=== PATIENT | male | born 1970 | race African-American/Black ===

== ENCOUNTER 2023-08-29 07:43 | Outpatient (RCR) | payer OTHER, SELFPAY ==
[2023-08-04] VITALS (7 sets, daily range): BP systolic 98–112; BP diastolic 52–68
--- NOTE | 2023-08-04 15:13 | SURV.HPR ---
Assessment / Plan
- -
Assessment:
Metastatic prostate cancer undergoing treatment with lupron, aberaterone, and keytruda.
Plan:
Transfuse 2 units PRBCs as planned.
Follow up with Dr. Hanley as scheduled.
Continue keytruda at 200mg q3.
Continue tramadol for joint pain as needed- has RX.
Emphasized healthy lifestyle and encouraged small bouts of exercise (ie walking, riding stationary bike, etc) to attempt to improve side effects including sleep, joint pain, fatigue.
Patient was given the opportunity to ask questions and responses provided. No questions asked.
Encouraged patient to call the office to any additional questions or concerns.
Medical History
- Chief Complaint
Date of Service: 08/04/23 (prior to blood transfusion)
- Interval History
Patient under the care of Dr. Hanley for metastatic prostate cancer with a BRCA mutation. Was restarted on keytruda 05/2023 per patient and has been receiving every 3 weeks along with lupron q6 months. He recently had colonoscopy and endoscopy and
colon polyps discovered but not removed due to low platelets. He has been requiring transfusion support. Recent CBC 6.9 on 08/01 and here today for 2 units of blood. Does report SOB on exertion, 'wooziness' at times, fatigue. He is sleeping ok
and has some joint paint to hip flexors as well as shoulders which he believes is related to keytruda but improved with lower dosage. Otherwise he has no other complaints. He comes to today's appt unaccompanied.
- Past Medical History
Past Medical History: Cancer (mets prostate), Other (renal failure)
Past Surgical History: None
- Social History
Tobacco: Non-smoker
Alcohol: None
Drug: None
Personal:
Living: With Family
Employment: Employed
- Family History
Family History: Not pertinent
- Allergies & Home Medications
Allergies
Allergy/AdvReac Type Severity Reaction Status Date / Time
No Known Allergies Allergy Verified 08/04/23 10:58
Home Medications
cyanocobalamin (vitamin B-12) 1,000 mcg tablet 1,000 mcg PO DAILY Supplement 05/30/16
abiraterone 250 mg tablet (Zytiga) 1,000 mg PO DAILY Prostate Cancer 01/17/23
ascorbic acid (vitamin C) 1,000 mg tablet (Vitamin C) 500 mg PO DAILY Supplement 01/17/23
calcium 150 mg tablet 1,200 mg PO DAILY Supplement 01/17/23
cholecalciferol (vitamin D3) 100 mcg (4,000 unit) capsule 125 mcg PO DAILY Supplement 01/17/23
acetaminophen 325 mg tablet 1,000 mg PO TID PRN Pain 14 days #130 tabs 01/18/23
denosumab 120 mg/1.7 mL (70 mg/mL) subcutaneous solution (Xgeva) 120 mg SC Q4W 02/03/23
leuprolide acetate (6 month) 45 mg intramuscular syringe kit (Lupron Depot) 45 mg IM .[id number] 02/03/23
dexamethasone 4 mg tablet 1 mg PO DAILY 06/07/23
tramadol 50 mg tablet 50 mg PO Q6H PRN pain 07/21/23
lupron 45mg q6 months
Review of Systems
- -
History Source: Patient
A 12 point review of systems was negative except as noted: Yes
All other systems: Reviewed and negative
General: Reports: Fatigue, Weakness
Skin: Reports: Itching (after keytruda once but has not recurred)
Cardiac: Reports: Dyspnea on Exertion
Respiratory: Reports: Shortness of Breath
GI: Reports: Appetite Good
MusculoSkeletal: Reports: Joint Pain
Patient reports the following physical concerns:
Physical Exam
- -
General: Well Developed, Well Nourished, No Apparent Distress, Male
HEENT: Normocephalic, PERRLA
Respiratory: Clear to Auscultation, Non Labored Respirations, Breath Sounds Clear Throughout
Cardiac: Regular Rhythm, Positive S1/S2
GI: Soft, Non Tender, Non Distended, Normal Bowel Sounds
Genito-urinary: No Costovertebral Tenderness
Musculoskeletal: No Edema, Full ROM
Skin: Warm, Dry
Neuro: AAOx3, Nonfocal/grossly Intact
Hematologic/Lymphatic: No Lymphadenopathy
Psych: Calm, Interactive & Cooperative
[2023-08-29] VITALS (8 sets, daily range): BP systolic 95–110; BP diastolic 57–75
== END 2023-08-30 10:51 | disposition home or self-care (01) ==
LOC: OID 07:43
PROVIDERS: ATTENDING PHYSICIAN Internal Medicine Hematology & Oncology; FAMILY PHYSICIAN Family Medicine
DX: C61 Malignant neoplasm of prostate (principal); C77.2 Secondary and unspecified malignant neoplasm of intra-abdominal lymph nodes; C79.51 Secondary malignant neoplasm of bone
CPT/HCPCS: 36415; 36430; 86850; 86900; 86901; 86920; P9016

== ENCOUNTER 2023-09-28 07:38 | Outpatient (RCR) | payer OTHER, SELFPAY ==
[2023-09-05 09:39] LABS: % Eosinophils 0.6 % (0-6); % Immature Granulocytes 2.3 % (0-0.5); % Lymphocytes 36.2 % (20.5-51.1); % Monocytes 8.2 % (1.7-9.3); % Neutrophils 52.7 % (42.2-75.2); Absolute Immature Granulocytes 0.1 10^3/uL (0-0.05); Absolute Lymphocytes 1.3 10^3/uL (1.2-3.4); Absolute Monocytes 0.3 10^3/uL (0.1-0.6); Absolute Neutrophils 1.9 10^3/uL (1.4-6.5); Hematocrit 23.5 % (39.0-52.0); Hemoglobin 7.7 g/dL (13.0-18.0); Mean Corp Hgb Conc. 32.8 g/dL (33.0-37.0); Mean Corpuscular Hgb 31.2 pg (27.0-31.0); Mean Corpuscular Volume 95.1 fL (80.0-94.0); Red Blood Cell Count 2.47 10^6/uL (4.70-6.10); Red Cell Dist. Width 19.9 % (11.5-14.5); White Blood Cell Count 3.5 10^3/uL (4.8-10.8)
[2023-09-05 09:41] LABS: Platelet Count 20 10^3/uL (130-400)
[2023-09-05 10:21] LABS: Carbon Dioxide 23 mmol/L (22-30)
[2023-09-05 10:28] LABS: ALT (SGPT) 17 U/L (0-50); AST (SGOT) 100 U/L (17-59); Albumin 3.6 g/dl (3.5-5.0); Alkaline Phosphatase 162 U/L (38-126); Blood Urea Nitrogen 13 mg/dl (9-20); Calcium 7.9 mg/dl (8.4-10.2); Chloride 108 mmol/L (98-107); Glucose 110 mg/dl (70-99); Potassium 3.8 mmol/L (3.5-5.1); Sodium 137 mmol/L (135-145); Total Bilirubin 0.8 mg/dl (0.2-1.3); Total Protein 6.9 g/dl (6.3-8.2); eGFR > 60.00
[2023-09-14 08:14] VITALS: BP 91/45
[2023-09-14 08:34] VITALS: BP 101/44
--- NOTE | 2023-09-14 09:05 | SURV.HPR ---
Assessment / Plan
- -
Assessment:
Metastatic prostate cancer undergoing treatment with lupron, aberaterone, keytruda, xgeva..
Plan:
Transfuse 2 units PRBCs as planned today.
Follow up with Dr. Hanley as scheduled.
Consider nutrition consult if weight loss recurs or for any nutritional education.
Bleeding precautions reviewed with patient due to thrombocytopenia.
Continue keytruda at 200mg q3. Next dose 09/26/2023 with [facility] appt.
Continue tramadol for joint pain as needed- has RX.
Emphasized healthy lifestyle and encouraged small bouts of exercise (ie walking, riding stationary bike, etc) to attempt to improve side effects including sleep, joint pain, fatigue.
Patient was given the opportunity to ask questions and responses provided. No questions asked.
Encouraged patient to call the office to any additional questions or concerns.
Medical History
- Chief Complaint
Date of Service: 09/14/23 (prior to blood transfusion)
- Interval History
Patient under the care of Dr. Hanley for metastatic prostate cancer with a BRCA mutation. Was restarted on keytruda 05/2023 per patient and has been receiving every 3 weeks along with lupron q6 months last dose 09/05/2023 with xgeva. Of note he had a
recent colonoscopy and endoscopy and colon polyps discovered but not removed due to low platelets. He has been requiring transfusion support. Recent CBC hgb 6.4 on 09/10 platelets 20 and here today for 2 units of blood. Does report SOB on exertion
and fatigue. He is sleeping ok about 6 hours per night. Does report continued pain to shoulders and seems to worsen after Keytruda. Does take tramadol for pain relief. Due to follow up with Dr. Hanley 09/26/2023 and for treatment. He comes to
today's appt unaccompanied. Still continues to work.
- Past Medical History
Past Medical History: Cancer (prostate metastatic), Renal Failure (acute hydronephrosis)
Past Surgical History: None
- Social History
Tobacco: Non-smoker
Drug: None
Personal:
Living: With Family
Employment: Employed
- Family History
Family History: Not pertinent
- Allergies & Home Medications
Allergies
Allergy/AdvReac Type Severity Reaction Status Date / Time
No Known Allergies Allergy Verified 09/14/23 08:11
Home Medications
cyanocobalamin (vitamin B-12) 1,000 mcg tablet 1,000 mcg PO DAILY Supplement 05/30/16
abiraterone 250 mg tablet (Zytiga) 1,000 mg PO DAILY Prostate Cancer 01/17/23
ascorbic acid (vitamin C) 1,000 mg tablet (Vitamin C) 500 mg PO DAILY Supplement 01/17/23
calcium 150 mg tablet 1,200 mg PO DAILY Supplement 01/17/23
cholecalciferol (vitamin D3) 100 mcg (4,000 unit) capsule 125 mcg PO DAILY Supplement 01/17/23
acetaminophen 325 mg tablet 1,000 mg PO TID PRN Pain 14 days #130 tabs 01/18/23
denosumab 120 mg/1.7 mL (70 mg/mL) subcutaneous solution (Xgeva) 120 mg SC Q4W 02/03/23
leuprolide acetate (6 month) 45 mg intramuscular syringe kit (Lupron Depot) 45 mg IM .[id number] 02/03/23
dexamethasone 4 mg tablet 1 mg PO DAILY 06/07/23
tramadol 50 mg tablet 50 mg PO Q6H PRN pain 07/21/23
Review of Systems
- -
History Source: Patient
A 12 point review of systems was negative except as noted: Yes
All other systems: Reviewed and negative
General: Reports: Weight Stable, Fatigue, Weakness
HEENT: Denies: Headache, Nausea, Vomiting, Epistaxis
Cardiac: Reports: Dyspnea on Exertion
GI: Reports: Appetite Fair. Denies: Nausea, Vomiting, Diarrhea, Constipation, Blood in Stool
Vascular: Reports: Other (easy bruising)
MusculoSkeletal: Reports: Muscle Weakness, Joint Pain
Patient reports the following physical concerns:
Physical Exam
- -
General: No Apparent Distress, Male, Comfortable, Conversant
HEENT: Normocephalic
Respiratory: Clear to Auscultation
Cardiac: Regular Rhythm, Positive S1/S2
GI: Soft, Non Tender, Non Distended, Normal Bowel Sounds
Musculoskeletal: No Edema
Skin: Warm, Dry, Normal Turgor
Neuro: AAOx3, Nonfocal/grossly Intact
Hematologic/Lymphatic: No Lymphadenopathy
Psych: Calm, Intact Judgement/Insight, Interactive & Cooperative
[2023-09-14 10:05] VITALS: BP 95/44
[2023-09-14 10:10] VITALS: BP 95/44
[2023-09-14 10:26] VITALS: BP 107/48
[2023-09-14 12:29] VITALS: BP 106/53
[2023-09-28] VITALS (9 sets, daily range): BP systolic 103–120; BP diastolic 63–68
== END 2023-09-29 10:12 | disposition home or self-care (01) ==
LOC: OID 07:38
PROVIDERS: ATTENDING PHYSICIAN Internal Medicine Hematology & Oncology
DX: C79.51 Secondary malignant neoplasm of bone (principal); C61 Malignant neoplasm of prostate; C77.2 Secondary and unspecified malignant neoplasm of intra-abdominal lymph nodes
CPT/HCPCS: 36415; 36430; 80053; 85025; 86850; 86900; 86901; 86920; 96365; P9016; P9073

== ENCOUNTER → 2023-09-29 09:09 | Outpatient (REF) | payer OTHER, SELFPAY ==
[2023-09-29 09:41] VITALS: BP 109/72; BP_SYST 77
[2023-09-29 10:18] LABS: % Basophils 0.3 % (0-2); % Eosinophils 0.3 % (0-6); % Lymphocytes 38.9 % (20.5-51.1); % Monocytes 7.8 % (1.7-9.3); % Neutrophils 50.7 % (42.2-75.2); Absolute Immature Granulocytes 0.1 10^3/uL (0-0.05); Absolute Lymphocytes 1.2 10^3/uL (1.2-3.4); Absolute Monocytes 0.2 10^3/uL (0.1-0.6); Absolute Neutrophils 1.6 10^3/uL (1.4-6.5); Hematocrit 22.9 % (39.0-52.0); Hemoglobin 7.5 g/dL (13.0-18.0); Mean Corp Hgb Conc. 32.8 g/dL (33.0-37.0); Mean Corpuscular Hgb 29.5 pg (27.0-31.0); Mean Corpuscular Volume 90.2 fL (80.0-94.0); Nucleated Red Blood Cells % 0.7 % (-); Platelet Count 31 10^3/uL (130-400); Red Blood Cell Count 2.54 10^6/uL (4.70-6.10); Red Cell Dist. Width 18.3 % (11.5-14.5); White Blood Cell Count 3.1 10^3/uL (4.8-10.8)
[2023-09-29] MEDS: ATIVAN 0.5 MG IV (10:24)
[2023-09-29] MEDS: NSS (PRESERVATIVE FREE) 0.25 ML IV (10:25)
[2023-09-29 10:28] LABS: INR 1.16; PT 14.7 Sec (11.4-14.6)
[2023-09-29 11:46] VITALS: BP 112/68; BP_SYST 75
[2023-09-29 12:19] VITALS: BP 96/54
== END ==
LOC: RADI 09:09
PROVIDERS: Radiology Diagnostic Radiology; ATTENDING PHYSICIAN Nurse Practitioner Adult Health; FAMILY PHYSICIAN Family Medicine
DX: D64.9 Anemia, unspecified (principal); C61 Malignant neoplasm of prostate
CPT/HCPCS: 88305; 88311; 88312; 38222; 77012; 85025; 85610; 88313; 88341; 88342

== ENCOUNTER → 2023-10-26 09:02 | Outpatient (REF) | payer OTHER, SELFPAY ==
[2023-10-26 10:26] LABS: % Basophils 0.3 % (0-2); % Eosinophils 0.3 % (0-6); % Immature Granulocytes 1.4 % (0-0.5); % Lymphocytes 40.1 % (20.5-51.1); % Monocytes 8.7 % (1.7-9.3); % Neutrophils 49.2 % (42.2-75.2); Absolute Immature Granulocytes 0.1 10^3/uL (0-0.05); Absolute Lymphocytes 1.5 10^3/uL (1.2-3.4); Absolute Monocytes 0.3 10^3/uL (0.1-0.6); Absolute Neutrophils 1.8 10^3/uL (1.4-6.5); Hematocrit 25.2 % (39.0-52.0); Hemoglobin 8.1 g/dL (13.0-18.0); Mean Corp Hgb Conc. 32.1 g/dL (33.0-37.0); Mean Corpuscular Hgb 30.3 pg (27.0-31.0); Mean Corpuscular Volume 94.4 fL (80.0-94.0); Mean Platelet Volume 10.2 fL (7.4-10.4); Nucleated Red Blood Cells % 0.8 % (-); Platelet Count 13 10^3/uL (130-400); Red Blood Cell Count 2.67 10^6/uL (4.70-6.10); Red Cell Dist. Width 18.4 % (11.5-14.5); White Blood Cell Count 3.7 10^3/uL (4.8-10.8)
[2023-10-26 11:31] LABS: ALT (SGPT) 20 U/L (0-50); AST (SGOT) 99 U/L (17-59); Albumin 3.9 g/dl (3.5-5.0); Alkaline Phosphatase 152 U/L (38-126); Blood Urea Nitrogen 14 mg/dl (9-20); Calcium 8.8 mg/dl (8.4-10.2); Carbon Dioxide 24 mmol/L (22-30); Chloride 107 mmol/L (98-107); Glucose 109 mg/dl (70-99); Potassium 4.2 mmol/L (3.5-5.1); Sodium 140 mmol/L (135-145); Total Bilirubin 0.7 mg/dl (0.2-1.3); Total Protein 7.1 g/dl (6.3-8.2); eGFR > 60.00
== END ==
LOC: REG 09:02
PROVIDERS: ATTENDING PHYSICIAN Internal Medicine Hematology & Oncology; FAMILY PHYSICIAN Family Medicine
DX: C79.51 Secondary malignant neoplasm of bone (principal); C77.2 Secondary and unspecified malignant neoplasm of intra-abdominal lymph nodes; C61 Malignant neoplasm of prostate
CPT/HCPCS: 36415; 80053; 85025; 86850; 86900; 86901

== ENCOUNTER 2023-10-27 08:28 | Outpatient (RCR) | payer OTHER, SELFPAY ==
[2023-10-17] VITALS (11 sets, daily range): BP systolic 111–124; BP diastolic 52–67
[2023-10-27 09:09] VITALS: BP 98/59
[2023-10-27 09:26] VITALS: BP 91/53
[2023-10-27] MEDS: ZOFRAN 4 MG IV (09:29)
[2023-10-27 10:17] VITALS: BP 92/55
== END 2023-10-31 23:59 | disposition home or self-care (01) ==
LOC: OID 08:28
PROVIDERS: ATTENDING PHYSICIAN Internal Medicine Hematology & Oncology
DX: C79.51 Secondary malignant neoplasm of bone (principal); C61 Malignant neoplasm of prostate; C77.2 Secondary and unspecified malignant neoplasm of intra-abdominal lymph nodes
CPT/HCPCS: 36415; 36430; 86850; 86900; 86901; 86920; 96374; P9016; P9073

== ENCOUNTER → 2023-11-15 16:25 | Outpatient (REF) | payer OTHER, SELFPAY | LOC: REG 16:25 | PROVIDERS: ATTENDING PHYSICIAN Internal Medicine Hematology & Oncology; FAMILY PHYSICIAN Family Medicine | DX: C79.51 Secondary malignant neoplasm of bone (principal); C77.2 Secondary and unspecified malignant neoplasm of intra-abdominal lymph nodes; C61 Malignant neoplasm of prostate | CPT/HCPCS: 36415; 80053; 84439; 84443; 84480; 85025; 86850; 86900; 86901; 86920 ==

== ENCOUNTER 2023-11-17 10:01 | Outpatient (RCR) | payer OTHER, SELFPAY ==
[2023-11-01 13:53] LABS: % Eosinophils 0.4 % (0-6); % Immature Granulocytes 1.7 % (0-0.5); % Lymphocytes 43.1 % (20.5-51.1); % Monocytes 6.7 % (1.7-9.3); % Neutrophils 48.1 % (42.2-75.2); Absolute Monocytes 0.2 10^3/uL (0.1-0.6); Absolute Neutrophils 1.2 10^3/uL (1.4-6.5); Hematocrit 20.9 % (39.0-52.0); Mean Corp Hgb Conc. 33.5 g/dL (33.0-37.0); Mean Corpuscular Hgb 30.7 pg (27.0-31.0); Mean Corpuscular Volume 91.7 fL (80.0-94.0); Mean Platelet Volume 11.1 fL (7.4-10.4); Nucleated Red Blood Cells % 1.7 % (-); Platelet Count 12 10^3/uL (130-400); Red Cell Dist. Width 18.8 % (11.5-14.5); White Blood Cell Count 2.4 10^3/uL (4.8-10.8)
[2023-11-01 14:08] LABS: Red Blood Cell Count 2.28 10^6/uL (4.70-6.10)
[2023-11-01 14:33] LABS: ALT (SGPT) 27 U/L (0-50); AST (SGOT) 105 U/L (17-59); Albumin 3.5 g/dl (3.5-5.0); Alkaline Phosphatase 144 U/L (38-126); Blood Urea Nitrogen 11 mg/dl (9-20); Calcium 8.5 mg/dl (8.4-10.2); Carbon Dioxide 24 mmol/L (22-30); Chloride 109 mmol/L (98-107); Glucose 107 mg/dl (70-99); Potassium 3.6 mmol/L (3.5-5.1); Sodium 139 mmol/L (135-145); Total Bilirubin 0.5 mg/dl (0.2-1.3); Total Protein 6.7 g/dl (6.3-8.2); eGFR > 60.00
[2023-11-02 10:11] VITALS: BP 107/63
[2023-11-02 10:28] VITALS: BP 102/59
[2023-11-02 12:03] VITALS: BP 136/79
[2023-11-02 12:58] VITALS: BP 136/79
[2023-11-02 13:15] VITALS: BP 104/71
[2023-11-02 14:01] VITALS: BP 111/71
[2023-11-03 11:14] VITALS: BP 103/62
[2023-11-03 11:32] VITALS: BP 104/58
[2023-11-03 13:51] VITALS: BP 113/66
[2023-11-15 18:00] LABS: ALT (SGPT) 24 U/L (0-50); AST (SGOT) 123 U/L (17-59); Albumin 3.7 g/dl (3.5-5.0); Alkaline Phosphatase 142 U/L (38-126); Blood Urea Nitrogen 9 mg/dl (9-20); Calcium 8.2 mg/dl (8.4-10.2); Carbon Dioxide 21 mmol/L (22-30); Chloride 111 mmol/L (98-107); Glucose 114 mg/dl (70-99); Potassium 3.5 mmol/L (3.5-5.1); Sodium 141 mmol/L (135-145); Total Bilirubin 0.7 mg/dl (0.2-1.3); Total Protein 6.8 g/dl (6.3-8.2); eGFR > 60.00
[2023-11-15 18:10] LABS: % Basophils 0.4 % (0-2); % Eosinophils 0.7 % (0-6); % Immature Granulocytes 3.6 % (0-0.5); % Lymphocytes 42.3 % (20.5-51.1); % Monocytes 7.3 % (1.7-9.3); % Neutrophils 45.7 % (42.2-75.2); Absolute Immature Granulocytes 0.1 10^3/uL (0-0.05); Absolute Lymphocytes 1.2 10^3/uL (1.2-3.4); Absolute Monocytes 0.2 10^3/uL (0.1-0.6); Absolute Neutrophils 1.3 10^3/uL (1.4-6.5); Hemoglobin 7.2 g/dL (13.0-18.0); Mean Corp Hgb Conc. 34.3 g/dL (33.0-37.0); Mean Corpuscular Hgb 30.6 pg (27.0-31.0); Mean Corpuscular Volume 89.4 fL (80.0-94.0); Nucleated Red Blood Cells % 0.7 % (-); Red Blood Cell Count 2.35 10^6/uL (4.70-6.10); Red Cell Dist. Width 18.4 % (11.5-14.5); White Blood Cell Count 2.7 10^3/uL (4.8-10.8)
[2023-11-15 18:17] LABS: Free T4 1.54 ng/dl (0.78-2.19)
[2023-11-15 18:25] LABS: Platelet Count 10 10^3/uL (130-400)
[2023-11-15 18:31] LABS: TSH 2.82 uIU/ml (0.47-4.68)
[2023-11-17 10:24] VITALS: BP 112/51
[2023-11-17 10:48] VITALS: BP 102/51
[2023-11-17 11:28] VITALS: BP 109/51
[2023-11-17 11:35] VITALS: BP 109/51
[2023-11-17 11:56] VITALS: BP 116/54
[2023-11-17 13:35] VITALS: BP 132/57
[2023-11-19 08:25] LABS: Total T3 (Sendout) 198 ng/dL (80-200)
== END 2023-11-30 15:40 | disposition home or self-care (01) ==
LOC: OID 10:01
PROVIDERS: ATTENDING PHYSICIAN Internal Medicine Hematology & Oncology; FAMILY PHYSICIAN Family Medicine
DX: C61 Malignant neoplasm of prostate (principal); C79.51 Secondary malignant neoplasm of bone; C77.2 Secondary and unspecified malignant neoplasm of intra-abdominal lymph nodes
CPT/HCPCS: 36415; 36430; 80053; 84439; 84443; 84480; 85025; 86850; 86900; 86901; 86920; P9016; P9073

== ENCOUNTER 2023-11-19 17:01 | Emergency (ER) | payer OTHER, SELFPAY ==
[2023-11-19 17:01] VITALS: BMI 26.4
[2023-11-19 17:02] VITALS: BP 107/68
[2023-11-19] MEDS: ZOFRAN 4 MG IV (17:27)
[2023-11-19 17:34] LABS: % Basophils 0.3 % (0-2); % Eosinophils 0.7 % (0-6); % Immature Granulocytes 2.8 % (0-0.5); % Lymphocytes 44.4 % (20.5-51.1); % Monocytes 8.7 % (1.7-9.3); % Neutrophils 43.1 % (42.2-75.2); Absolute Immature Granulocytes 0.1 10^3/uL (0-0.05); Absolute Lymphocytes 1.3 10^3/uL (1.2-3.4); Absolute Monocytes 0.3 10^3/uL (0.1-0.6); Absolute Neutrophils 1.2 10^3/uL (1.4-6.5); Hematocrit 23.3 % (39.0-52.0); Hemoglobin 7.9 g/dL (13.0-18.0); Mean Corp Hgb Conc. 33.9 g/dL (33.0-37.0); Mean Corpuscular Hgb 30.3 pg (27.0-31.0); Mean Corpuscular Volume 89.3 fL (80.0-94.0); Nucleated Red Blood Cells % 1.4 % (-); Red Blood Cell Count 2.61 10^6/uL (4.70-6.10); Red Cell Dist. Width 17.7 % (11.5-14.5); White Blood Cell Count 2.9 10^3/uL (4.8-10.8)
[2023-11-19] MEDS: NSS 1000 IV (17:36)
[2023-11-19 17:43] LABS: ALT (SGPT) 29 U/L (0-50); AST (SGOT) 147 U/L (17-59); Albumin 3.9 g/dl (3.5-5.0); Alkaline Phosphatase 151 U/L (38-126); Blood Urea Nitrogen 8 mg/dl (9-20); Calcium 8.2 mg/dl (8.4-10.2); Carbon Dioxide 23 mmol/L (22-30); Chloride 110 mmol/L (98-107); Glucose 138 mg/dl (70-99); Lipase 170 U/L (23-300); Potassium 3.5 mmol/L (3.5-5.1); Sodium 143 mmol/L (135-145); Total Protein 7.2 g/dl (6.3-8.2); eGFR > 60.00
[2023-11-19 18:00] VITALS: BP 107/66
--- NOTE | 2023-11-19 18:20 | ED.GENMED ---
History of Present Illness
General
Chief Complaint: Headache
Source: patient and family
Exam Limitations: none
Time Seen by Provider: 11/19/23 17:09
Nursing documentation reviewed up to this point in time: agreed with
Travel History
Have you had any contact with someone who has COVID-19?: No
Do you have any symptoms of coronavirus? Fever > 100 degrees, chills, cough, shortness of breath, sore throat, loss of taste or smell, muscle aches, or headache?: No
History of Present Illness
History of Present Illness:
53-year-old male with a past medical history of prostate cancer currently on chemotherapy through [facility] (Dr. Hanley) who presents to the emergency department with his family for evaluation of headaches with nausea and vomiting.
Patient reports he had onset of headaches about a week to 10 days ago and they have been constant since that time. He reports pain mainly in the right temporal region. He denies any trauma to the head. He says that on Monday (2 days ago) he began
to have nausea and has been vomiting all weekend�he says the vomit is the color of muddy water. He says he has had some blurry vision particular in his right eye. He saw his physician on Monday who scheduled him for MRI of the brain but given
worsening vomiting over the weekend he came to the emergency room for assessment. He has not had any loss of vision. He denies any speech changes. Denies any weakness or numbness in his extremities. Although he has had nausea and vomiting he
denies any abdominal pain. He says he does have occasional loose stools. He denies any chest pain or shortness of breath. He denies any other complaints. He is receiving his cancer treatment through [facility], currently receiving Xgeva, Zytiga,
Lupron.
Past History
Past History
ED Past Medical History: Other (prostate cancer w/ obstruction and hydro w/ R nephrostomy tube)
ED Past Surgical History: Urological (R nephrostomy tube)
Patient has exhibited threatening behavior?: No
PSI?: No
Social History
Tobacco: Non-smoker
Alcohol: Occasional
Drug: None
Family History
Family History: Negative Diabetes, Hypertension or CAD
Review of Systems
Review of Systems
All Other Systems: ROS reviewed and negative except as documented in HPI and ROS
Constitutional: Reports fatigue; Denies fever or chills
EENT: Denies sore throat or runny nose
Respiratory: Denies cough or trouble breathing
Cardiac: Denies chest pain or palpitations
ABD/GI: Reports nausea and vomiting; Denies abdominal pain or diarrhea
: Denies flank pain
Musculoskeletal: Denies neck pain or back pain
Neurological: Reports headache and other (Blurry vision); Denies weakness or numbness
Phy Exam
Physical Exam
Physical Exam:
General: Awake, alert, oriented x3; no acute distress
Head: Normocephalic, atraumatic
Eyes: Conjunctiva normal, EOMI, pupils equal round and reactive to light bilaterally
Throat: Airway intact, mucous membranes dry
Neck: Trachea midline, supple without meningismus
Lungs: Clear to auscultation bilaterally, no wheezing, rales, rhonchi
Heart: Tachycardia with regular rhythm, no murmurs, gallops, or rubs
Abd: Soft, non distended, nontender
Neuro: Cranial nerves intact 2 through 12, speech fluid without dysarthria or aphasia, no limb ataxia, motor and sensory function is intact and symmetric in the upper and lower extremities
Skin: Dry, no rash
Extremities: Warm and well-perfused with equal pulses
Scores
Heart Failure Risk
Heart Failure Risk Score: Not Applicable
Heart Score for Chest Pain Patients
STEMI patient?: Not applicable
Withdrawal Assessment of Alcohol
Withdrawal Assessment Completed?: Not applicable
Course
Orders/Labs/Results
Orders:
Orders
11/19/23 17:11
CT Head W/o Iv Contrast Urgent
Comment:
Reason For Exam: headache, N/V
11/19/23 17:24
Complete Blood Count/With Diff Urgent
Comprehensive Metabolic Panel Urgent
Lipase Urgent
Ondansetron Injectable [Zofran] 4 mg IV NOW STA
11/19/23 17:34
0.9% Sodium Chloride 1000 ml [Nss] 1,000 ml IV BOLUS
11/19/23 18:26
Electrocardiogram (*1) Urgent
Reason for Study: QTc Monitoring
EKG- Treatment ONCE
11/19/23 19:20
Blood Bank Products [* Blood Bank Products] Urgent
Blood Bank Products: *Plt Single Donor Leuko
Quantity: 2
Transfuse Today: Yes
Reason: Bleeding
11/19/23 19:39
Morphine Sulfate 2 mg IV NOW STA
11/19/23 19:45
Type+Screen Urgent
Abnormal Lab Results
11/19/23
17:24
WBC 2.9 L 10^3/uL
(4.8-10.8)
RBC 2.61 L 10^6/uL
(4.70-6.10)
Hgb 7.9 L g/dL
(13.0-18.0)
Hct 23.3 L %
(39.0-52.0)
RDW 17.7 H %
(11.5-14.5)
Plt Count 9 L* 10^3/uL
(130-400)
Abs Immat Gran (auto) 0.1 H 10^3/uL
(0-0.05)
Absolute Neuts (auto) 1.2 L 10^3/uL
(1.4-6.5)
Immature Gran % 2.8 H %
(0-0.5)
Chloride 110 H mmol/L
(98-107)
BUN 8 L mg/dl
(9-20)
Glucose 138 H mg/dl
(70-99)
Calcium 8.2 L mg/dl
(8.4-10.2)
AST 147 H U/L
(17-59)
Alkaline Phosphatase 151 H U/L
(38-126)
11/19/23 17:24
11/19/23 17:24
Vital Signs
Initial and Last Documented VS:
Initial Vital Signs
Temp Pulse Resp BP Pulse Ox
36.3 C 101 20 107/68 100
11/19/23 17:02 11/19/23 17:02 11/19/23 17:02 11/19/23 17:02 11/19/23 17:02
Last Documented Vital Signs
Temp Pulse Resp BP Pulse Ox
36.3 C 98 15 111/69 100
11/19/23 17:02 11/19/23 19:30 11/19/23 19:30 11/19/23 19:11 11/19/23 19:15
MDM/Problems Addressed
Differential Diagnosis Includes:
Brain mass/metastasis, intracranial hemorrhage, gastroenteritis, chemotherapy side effect
MDM/Problems Addressed:
53-year-old male presents for evaluation of headaches for the past week or so now starting to develop nausea and vomiting, blurry vision. He is tachycardic but otherwise normal vitals. Physical exam as above. Plan to place an IV check labs
including a CBC and a CMP, lipase. Will check CT head. Will provide Zofran and IV fluids. Will monitor very closely and reassess after the above.
Labs reviewed: CBC shows pancytopenia with WBC 2.9, hemoglobin 7.9 and thrombocytopenia with a platelet count 9000. CMP shows mild elevation of AST no other clinically significant abnormalities. Awaiting CT head. Patient feeling better after
Zofran.
CT head shows acute intracranial hemorrhage�patient denies any trauma likely spontaneous in the setting of severe thrombocytopenia. Will transfuse platelets�I discussed the case with hematology/oncology recommended 2 units of platelets�ordered in
[employer] and call placed to blood bank to expedite. Call placed to neurosurgery and we discussed the case�recommended transfer to [place] for ICU admission and neurosurgical consultation. Spoke with patient and his family to discuss diagnosis
and plan and they are in agreement. Will call to expedite transfer to [place]�accepting physician is Dr. Lee.
We have a ICU bed available, will fly to [place] for expeditious transport time as ground transport is delayed. Continue to monitor, patient remains awake and alert with a GCS of 15. He is normotensive.
I spoke with our coordinator for the blood bank on the phone here and apparently there are no platelets available in the entirety of [facility] to give. Call placed to [facility] but unfortunately would be hours before platelets available
from them. Fortunately, transport has arrived here to take patient to [facility]�I did update ICU physician and neurosurgeon that we were unable to give platelets prior to transfer.
Chronic conditions affecting care:
Prostate cancer
*Radiology
Radiology exam reviewed: radiology read reviewed
*Pulse Oximetry
Patient hypoxic: no
*EKG
Interpreted by ED Provider?: Yes
Heart Rate: 99
Rate: normal
Rhythm: sinus
[place]: normal axis
Interval: long QT
QRS Pattern: normal QRS
Ischemia: non-specific ST changes
*Critical Care Note
Total Time (30-74mins, 75-104mins- exclusive of procedures): 42
comment:
Critical care statement: A total of 42 minutes of critical care time was provided for this patient. This includes management of unstable vital signs, evaluation of the patient at bedside, frequent reassessment, discussion with
consultants/hospitalist, and review of pertinent medical records. This time was separate from time utilized to perform any aforementioned documented procedures
Data Reviewed
Review of Other/Old Records Reveals: Labs and Records
Source: patient and family
Patient Management
Discussion with other providers: [employer] (Discussed with neurosurgery, discussed with hematology/oncology)
Escalation/DeEscalation of care consider admission/obs:
Admission indicated to neuro ICU�transfer to [facility] in consultation with neurosurgery
ED Attending Note
-
Portions of this chart may have been created with voice recognition software.� Occasional wrong word or��sound alike� substitutions may have occurred due to the inherent limitations of voice recognition software.
Discharge Plan
Departure
Patient Disposition: [facility]
Date of Disposition: 11/19/23
Time of Disposition: 19:48
Discharge Problem:
Intracranial hemorrhage, Thrombocytopenia
Prescriptions:
No Action
cyanocobalamin (vitamin B-12) 1,000 MCG tablet
1,000 mcg PO DAILY
ascorbic acid (vitamin C) [Vitamin C] 1,000 mg Tablet
500 mg PO DAILY
abiraterone [Zytiga] 250 mg Tablet
1,000 mg PO DAILY
Rx Instructions:
must be taken on empty stomach, at least 1 hr before or 2 hrs after a meal/food
Xgeva 120 mg/1.7 mL (70 mg/mL) Solution
120 mg SC Q4W
Lupron Depot (6 Month) 45 mg Syringe Kit
45 mg IM [id number]
dexamethasone [Decadron] 4 mg Tablet
0.5 mg PO BID
tramadol 50 mg Tablet
50 mg PO Q6HPRN PRN (Reason: severe pain)
calcium carbonate [Calcium 500] 500 mg calcium (1,250 mg) Tablet
500 mg PO DAILY
cholecalciferol (vitamin D3) [Vitamin D3] 25 mcg (1,000 unit) Tablet
25 mcg PO DAILY
Keytruda 25 mg/mL Solution
0 mg IV Q3W
famotidine [Pepcid] 20 mg Tablet
20 mg PO DAILY
Referrals:
Ant Vargas MD [Family Provider] -
Hospital Transfer
Other hospital: [place]
I certify that the patient requires transfer: Yes
Discussed case with accepting physician: Dr. Lee
Reason for transfer: medical necessity and specialties available
Interventions
Interventions:
*Risk Screen - Suicide Last Done: 11/19/23 17:02
*General Assessment Last Done: 11/19/23 17:02
*Neglect/Abuse Screening Last Done: 11/19/23 17:02
ED- Fall Risk Assessment Last Done: 11/19/23 17:45
ED- Neurological Assessment Last Done: 11/19/23 17:45
Discharge Date and Time
Print Language: ANGUILLAN
[2023-11-19 18:28] LABS: Platelet Count 9 10^3/uL (130-400)
[2023-11-19 19:11] VITALS: BP 111/69
[2023-11-19] MEDS: MORPHINE SULFATE 2 MG IV (19:53)
[2023-11-19 20:00] VITALS: BP 116/60
== END 2023-11-19 20:45 | disposition short-term general hospital (02) ==
LOC: EMR 17:01
PROVIDERS: EMERGENCY PHYSICIAN Emergency Medicine; FAMILY PHYSICIAN Family Medicine
DX: I62.02 Nontraumatic subacute subdural hemorrhage (principal); I60.9 Nontraumatic subarachnoid hemorrhage, unspecified; I61.8 Other nontraumatic intracerebral hemorrhage
CPT/HCPCS: 99291; 96374; 96375; 70450; 80053; 83690; 85025; 86850; 86900; 86901; 93005

== ENCOUNTER 2023-11-28 17:04 | Inpatient (IN) | payer OTHER, SELFPAY ==
[2023-11-28] VITALS (23 sets, daily range): BP systolic 92–117; BP diastolic 42–67; BMI 25.9
[2023-11-28 11:17] LABS: % Basophils 0.4 % (0-2); % Eosinophils 0.4 % (0-6); % Immature Granulocytes 2.3 % (0-0.5); % Lymphocytes 48.3 % (20.5-51.1); % Monocytes 8.7 % (1.7-9.3); % Neutrophils 39.9 % (42.2-75.2); Absolute Immature Granulocytes 0.1 10^3/uL (0-0.05); Absolute Lymphocytes 1.3 10^3/uL (1.2-3.4); Absolute Monocytes 0.2 10^3/uL (0.1-0.6); Absolute Neutrophils 1.1 10^3/uL (1.4-6.5); Hematocrit 21.9 % (39.0-52.0); Hemoglobin 7.5 g/dL (13.0-18.0); Mean Corp Hgb Conc. 34.2 g/dL (33.0-37.0); Mean Corpuscular Hgb 29.6 pg (27.0-31.0); Mean Corpuscular Volume 86.6 fL (80.0-94.0); Mean Platelet Volume 12.3 fL (7.4-10.4); Nucleated Red Blood Cells % 1.1 % (-); Red Blood Cell Count 2.53 10^6/uL (4.70-6.10); Red Cell Dist. Width 17.1 % (11.5-14.5); White Blood Cell Count 2.6 10^3/uL (4.8-10.8)
[2023-11-28 11:22] LABS: Platelet Count 11 10^3/uL (130-400)
[2023-11-28 11:26] LABS: INR 1.47; PT 17.6 Sec (11.4-14.6)
[2023-11-28 11:27] LABS: APTT 38.1 Sec (23.4-35.0)
[2023-11-28 11:36] LABS: ALT (SGPT) 21 U/L (0-50); AST (SGOT) 187 U/L (17-59); Albumin 3.8 g/dl (3.5-5.0); Alkaline Phosphatase 148 U/L (38-126); Blood Urea Nitrogen 15 mg/dl (9-20); Calcium 9.1 mg/dl (8.4-10.2); Carbon Dioxide 25 mmol/L (22-30); Chloride 105 mmol/L (98-107); Glucose 120 mg/dl (70-99); Potassium 3.6 mmol/L (3.5-5.1); Sodium 140 mmol/L (135-145); Total Protein 6.8 g/dl (6.3-8.2); eGFR > 60.00
--- NOTE | 2023-11-28 14:01 | ED.GENMED ---
History of Present Illness
General
Chief Complaint: Weakness
Source: patient
Exam Limitations: none
Time Seen by Provider: 11/28/23 12:01
Nursing documentation reviewed up to this point in time: agreed with
Travel History
Have you had any contact with someone who has COVID-19?: No
Do you have any symptoms of coronavirus? Fever > 100 degrees, chills, cough, shortness of breath, sore throat, loss of taste or smell, muscle aches, or headache?: No
History of Present Illness
History of Present Illness:
Patient presents to ED secondary to worsening generalized weakness and continual nausea sensation since being discharged in the hospital 1 week ago. Patient was admitted at [facility] last week secondary to spontaneous intracranial
hemorrhage from thrombocytopenia, during which time he received FFP/platelet transfusion. Patient denies headache. Denies fever. Denies blurred vision. Denies of sensation or weakness. Denies chest pain or shortness of breath.
Past History
Past History
ED Past Medical History: Other (prostate cancer w/ obstruction and hydro w/ R nephrostomy tube)
ED Past Surgical History: Urological (R nephrostomy tube)
Patient has exhibited threatening behavior?: No
PSI?: No
Social History
Tobacco: Non-smoker
Alcohol: Occasional
Drug: None
Family History
Family History: Negative Diabetes, Hypertension or CAD
Review of Systems
Review of Systems
Allergies reviewed?: Yes
All Other Systems: ROS reviewed and negative except as documented in HPI and ROS
Constitutional: Reports no symptoms; Denies fever
EENT: Reports no symptoms
Respiratory: Reports no symptoms
Cardiac: Reports no symptoms
ABD/GI: Reports nausea; Denies vomiting
Musculoskeletal: Reports no symptoms
Skin: Reports no symptoms
Neurological: Reports no symptoms
Phy Exam
Physical Exam
Physical Exam:
Physical Exam
General: mild distress, not acutely ill. afebrile. weak appearing
Head: nc/at. eomi
Neck: supple. no meningeal signs.
Heart: s1/s2 regular rate and rhythm, no murmur. equal radial pulses.
Lungs: no acute respiratory distress. clear bilaterally
Abdomen: normal bowel sounds. not tender.
Neuro: alert and oriented x3. no focal neurological deficits
Skin: no rash
Psychiatric: well kept. interactive and cooperative
Extremities: no edema. no calf tenderness.
Course
Orders/Labs/Results
Orders:
Orders
11/28/23 11:08
Complete Blood Count/With Diff Urgent
Comprehensive Metabolic Panel Urgent
PTT Urgent
Prothrombin Time Urgent
11/28/23 12:02
CT Head W/o Iv Contrast Urgent
Comment:
Reason For Exam: weakness with thrombocytopenia
11/28/23 12:26
Electrocardiogram (*1) Urgent
Reason for Study: QTc Monitoring
EKG- Treatment ONCE
11/28/23 13:21
Trimethobenzamide [Tigan] 200 mg IM NOW STA
11/28/23 13:53
Type+Screen Urgent
11/28/23 14:30
0.9% Sodium Chloride 500 ml [Nss] 500 ml IV BOLUS
11/28/23 Dinner
Regular
At Your Request: Full Participation
11/28/23 15:33
* Blood Bank Products Urgent
Blood Bank Products: *Plt Single Donor Leuko
Quantity: 1
Transfuse Today: Yes
Reason: Thrombocytopenia
11/28/23 16:26
HEMATOLOGY CONSULT Routine
Consulting Provider: Karson Tam
Was physician already notified: Yes
Reason for consult: Acute on chronic severe thrombocytopenia recent intracranial hemorrhage
Neurosurgery Consult Routine
Consulting Provider: Silverio Avilez
Was physician already notified: Yes
Reason for Consult: Reason intracranial hemorrhage, acute on chronic severe thrombocytopenia
11/28/23 16:28
Admit/Transfer Patient As Directed
Co-Sign Provider:
Level of Care: Inpatient admission
Assign to:: IMU- Intermediate Care
Physician / Group: roger choi
Diagnosis: acute thrombocytopenia w/rec intracran hemorr. intract nausea, hypotension
Reason for Hospitalization: acute thrombocytopenia w/rec intracran hemorr. intract nausea, hypotension
Expected length of stay greater than two midnights?: Yes
ELOS- Estimated Length of Stay in days: 4
I certify the patient meets the requirements for IP care: Yes
Code Status As Directed
Resuscitation Status: Full Code
11/28/23 16:30
0.9% Sodium Chloride 1000 ml [Nss] 1,000 ml IV 100 mls/hr
11/28/23 16:41
Blood Bank Products [* Blood Bank Products] Urgent
Blood Bank Products: *Packed RBC Leuko(PRBC's)
Quantity: 1
Transfuse Today: Yes
Reason: Anemia
11/28/23 18:00
Acetaminophen [Tylenol] 650 mg PO Q4HPRN PRN
Ascorbic Acid [Vitamin C] 500 mg PO QPM
Calcium Carbonate [Oscal Shar 500] 500 mg PO QPM
Cholecalciferol (Vitamin D3) [VITAMIN D3 (cholecalciferol)] 25 mcg PO QPM
Cyanocobalamin [Vitamin B-12] 1,000 mcg PO QPM
Polyethylene Glycol Powder [Miralax] 17 grams PO DAILYPRN PRN
Tramadol HCl [Ultram] 50 mg PO Q6HPRN PRN
Trimethobenzamide [Tigan] 200 mg IM Q6HPRN PRN
11/28/23 18:00
VTE Contraindication Routine
VTE Mechanical Device Contraindication: Medical Contraindication
Pharmocologic Contraindication: Low platelet count
Comment: plt 11
Activity As Directed
Activity Level: As Tolerated
Vital Signs As Directed
Frequency: Per unit guidelines
Ot Eval And Treat Routine
Pt Eval And Treat Routine
Activity Level: As Tolerated
11/28/23 20:00
Dexamethasone [Decadron] 0.5 mg PO BID
11/29/23 08:00
Famotidine [Pepcid] 20 mg PO DAILY
11/29/23 09:27
Basic Metabolic Panel IN AM
Complete Blood Count/With Diff IN AM
11/30/23 06:00
EKG [Electrocardiogram (*1)] IN AM
Reason for Study: QTc Monitoring
Basic Metabolic Panel IN AM
Complete Blood Count/With Diff IN AM
12/01/23 06:00
EKG [Electrocardiogram (*1)] IN AM
Reason for Study: QTc Monitoring
Basic Metabolic Panel IN AM
Complete Blood Count/With Diff IN AM
12/02/23 06:00
EKG [Electrocardiogram (*1)] IN AM
Reason for Study: QTc Monitoring
Abnormal Lab Results
11/28/23 11/28/23
11:08 13:53
WBC 2.6 L 10^3/uL
(4.8-10.8)
RBC 2.53 L 10^6/uL
(4.70-6.10)
Hgb 7.5 L g/dL
(13.0-18.0)
Hct 21.9 L %
(39.0-52.0)
RDW 17.1 H %
(11.5-14.5)
Plt Count 11 L* 10^3/uL
(130-400)
MPV 12.3 H fL
(7.4-10.4)
Abs Immat Gran (auto) 0.1 H 10^3/uL
(0-0.05)
Absolute Neuts (auto) 1.1 L 10^3/uL
(1.4-6.5)
Immature Gran % 2.3 H %
(0-0.5)
Neutrophils % 39.9 L %
(42.2-75.2)
PT 17.6 H Sec
(11.4-14.6)
APTT 38.1 H Sec
(23.4-35.0)
Glucose 120 H mg/dl
(70-99)
AST 187 H U/L
(17-59)
Alkaline Phosphatase 148 H U/L
(38-126)
Crossmatch IS Only See Detail
11/28/23 11:08
11/28/23 11:08
Vital Signs
Initial and Last Documented VS:
Initial Vital Signs
Temp Pulse Resp BP Pulse Ox
98.2 F 96 19 106/60 100
11/28/23 10:50 11/28/23 10:50 11/28/23 10:50 11/28/23 10:50 11/28/23 10:50
Last Documented Vital Signs
Temp Pulse Resp BP Pulse Ox
98.5 F 93 21 95/67 97
11/29/23 19:28 11/29/23 20:02 11/29/23 20:02 11/29/23 20:02 11/29/23 20:00
MDM/Problems Addressed
MDM/Problems Addressed:
CT report reviewed with , who was able to compare the result to imaging studies from [facility] last week - much improved.
Pt's presenting symptoms likely secondary to dehydration from lack of oral intake. However, given his history will need close monitoring.
*EKG
Interpreted by ED Provider?: Yes
EKG Intrepretation Date: 11/28/23
Heart Rate: 94
Rhythm: sinus
[place]: normal axis
Ischemia: T-wave inversion
*Critical Care Note
Total Time (30-74mins, 75-104mins- exclusive of procedures): Not Applicable
ED Attending Note
-
Portions of this chart may have been created with voice recognition software.� Occasional wrong word or��sound alike� substitutions may have occurred due to the inherent limitations of voice recognition software.
Discharge Plan
Departure
Patient Disposition: Admit
Date of Disposition: 11/28/23
Time of Disposition: 15:34
Admit to: Telemetry
Presentation/result/management discussed w/ accepting MD/DO: Hospitalist
Discharge Problem:
Weakness, Pancytopenia
Interventions
Interventions:
*Risk Screen - Suicide Last Done: 11/28/23 14:44
*General Assessment Last Done: 11/28/23 14:44
*Neglect/Abuse Screening Last Done: 11/28/23 14:44
ED- Fall Risk Assessment Last Done: 11/28/23 14:44
*ED COVID-19 Vaccine History Last Done: 11/28/23 10:52
*Nursing Disposition Last Done: 11/28/23 18:34
ED- Cardiac Assessment Last Done: 11/28/23 11:59
ED- Neurological Assessment Last Done: 11/28/23 11:59
ED- Pulmonary Assessment Last Done: 11/28/23 11:59
Discharge Date and Time
Discharge Date/Time: 11/28/23 18:00
[2023-11-28] MEDS: TIGAN 200 MG IM (14:09)
[2023-11-28] MEDS: NSS 500 IV (14:42)
--- NOTE | 2023-11-28 15:45 | HPS.HSE ---
Addendum entered and electronically signed by Lenard Ybarra MD 11/28/23 16:46:
I saw and examined the patient.
The [employer]NA [employer]AT or PA's note was reviewed and I agree with the note.
Comment:
53-year-old male with past medical history of metastatic prostate cancer undergoing treatment, history of hydronephrosis, recent left parietal hemorrhage due to severe thrombocytopenia came to the hospital with ongoing weakness and continued
nausea.� Patient was here couple weeks and was transferred to [facility] intracranial hemorrhage.� Patient was recently discharged a week ago from [facility].� There he was treated with FFP and platelet transfusion for his
thrombocytopenia.� Currently he denies any headache, fever, chills.� Denies any blurred vision.� Denies any chest pain, abdominal pain, shortness of breath.� In the ED he got CT scan which showed partial but incomplete resolution of the left
parietal hemorrhage with persistent 4 cm area of vasogenic edema.� Per neurosurgery this has been improved from prior scan.� ED physician also spoke with hematology who recommended platelet transfusion.� Will consult neurosurgery and hematology at
this time.� Continue to transfuse platelets.� Currently on Decadron, defer to neurosurgery if this needs to be titrated.� Prolonged QTc so we will use Tigan for antiemetics. Also transferred 1 unit PRBC. Give fluids. Oncology and neurosurgery
aware. Hold Zytiga.
General: No Apparent Distress and Other (Generalized weakness); No Pain or Fever
HEENT: NormoCephalic, Anicteric, Moist mucous membranes, PERRLA and No Ptosis
Respiratory: Clear; No Wheezes, Rales or Rhonchi
Cardiac: S1/S2 and Regular Rhythm; No Murmur, Rub, Gallop or Peripheral Edema
Breast: Deferred by me
GI: Soft, Non Tender, Non Distended, Normal Bowel Sounds
Rectal: Deferred by Provider
Genito-urinary: Deferred by me
Musculoskeletal: No Edema
Skin: Warm, Dry and Other (Port present right upper chest wall)
Neuro: Nonfocal/grossly intact, Cranial Nerves Intact, No Sensory Deficits
Psych: Calm
Total Critical Care Time__58___ minutes. I was immediately available to the patient and staff. I personally examined, reviewed labs, diagnostic images/reports, interpretations, treatment plans, discussed patient care with other providers and
family or caregivers (if patient is unable to make decisions), entered orders as appropriate and documented the medical record.
Original Note:
Family Physician
-
Family Physician: Ant Vargas
Chief Complaint
-
Lethargy, generalized weakness, nausea, vomiting
History of Present Illness
53-year-old male complaining of generalized weakness with continued nausea, vomiting since being discharged 1 week ago from [facility] secondary to spontaneous intracranial hemorrhage from thrombocytopenia for which he received FFP and
platelet transfusion. He denies current headache, fever, chills, blurred vision, chest pain, shortness breath, abdominal pain, vomiting, diarrhea. CT in the ER today shows partial but incomplete resolution of left frontal hemorrhage since
11/19/2023 with persistent 4 cm area of vasogenic edema. Patient is past medical history of metastatic prostate cancer Dx 2016 undergoing treatment with Lupron, Zytiga, Keytruda, Xgeva, Hx history of hydro with right nephrostomy tube and removal
2015.
Medical History
Past Medical History
Past Medical History: Reports Other
Additional Past Medical History:
Left parietal hemorrhage 11/19/2023 due to severe thrombocytopenia
metastatic prostate cancer Dx 2016 undergoing treatment with Lupron, Zytiga, Keytruda, Xgeva
Chronic pancytopenia
Hx history of hydro with right nephrostomy tube placement and removal.
Past Surgical History: Reports Other
Additional Past Surgical History:
Colonoscopy 2023 with polyps not removed due to thrombocytopenia
History of hydro with right nephrostomy tube placement and removal
Social History
Tobacco: Non-smoker
Alcohol: None
Drug: None
Personal:
Living: With Family
Employment: Employed (Works from home for [employer])
Family History
Family History: Other (Mother HTN, father healthy)
Allergies / Home Medications
Allergies reflects when Allergies were last updated in [employer].
Home Medications with original date entered in [employer]
Allergy/Medication List:
Allergies
Allergy/AdvReac Type Severity Reaction Status Date / Time
No Known Allergies Allergy Verified 11/28/23 10:52
Home Medications
cyanocobalamin (vitamin B-12) 1,000 mcg tablet 1,000 mcg PO QPM Supplement 05/30/16
abiraterone 250 mg tablet (Zytiga) 1,000 mg PO DAILY Prostate Cancer 01/17/23
ascorbic acid (vitamin C) 1,000 mg tablet (Vitamin C) 500 mg PO QPM Supplement 01/17/23
denosumab 120 mg/1.7 mL (70 mg/mL) subcutaneous solution (Xgeva) 120 mg SC Q4W 02/03/23
leuprolide acetate (6 month) 45 mg intramuscular syringe kit (Lupron Depot) 45 mg IM [id number] 02/03/23
dexamethasone 4 mg tablet 0.5 mg PO BID 06/07/23
tramadol 50 mg tablet 50 mg PO Q6HPRN PRN severe pain 07/21/23
calcium carbonate 500 mg PO QPM 11/19/23
cholecalciferol (vitamin D3) 25 mcg (1,000 unit) tablet (Vitamin D3) 25 mcg PO QPM 11/19/23
famotidine 20 mg tablet (Pepcid) 20 mg PO DAILY 11/19/23
pembrolizumab 25 mg/mL intravenous solution (Keytruda) 0 mg IV Q3W 11/19/23
ondansetron 8 mg disintegrating tablet 8 mg PO DAILY 11/28/23
Review of Systems
-
History Source: Patient and Family
Constitutional: Reports Fatigue
EENT: Denies Sore Throat or Runny Nose
Respiratory: Denies Cough or Trouble Breathing
Cardiac: Denies Chest Pain, Diaphoresis, Palpitations or Syncope
Abdomen/GI: Reports Nausea and Vomiting; Denies Abdominal Pain, Diarrhea, Constipated, Bloody Stools or Black Stools
: Denies Dysuria, Frequency, Flank Pain, Incontinence or Difficulty Voiding
Musculoskeletal: Denies Joint Pain or Edema
Skin: Denies Itching or Rash
Neurological: Reports Weakness (Generalized); Denies Dizzy or Headache
Endocrine: Reports No Symptoms
Hematologic/Lymphatic: Reports No Symptoms
Psych: Reports Calm
Physical Exam
Vital Signs
Vital Signs
Temp Pulse Resp BP Pulse Ox
98.2 F 93 15 92/65 98
11/28/23 10:50 11/28/23 14:30 11/28/23 14:30 11/28/23 14:00 11/28/23 13:00
Physical Exam
General: No Apparent Distress and Other (Generalized weakness); No Pain or Fever
HEENT: NormoCephalic, Anicteric, Moist mucous membranes, PERRLA and No Ptosis
Respiratory: Clear; No Wheezes, Rales or Rhonchi
Cardiac: S1/S2 and Regular Rhythm; No Murmur, Rub, Gallop or Peripheral Edema
Breast: Deferred by me
GI: Soft, Non Tender, Non Distended, Normal Bowel Sounds and No Hepatosplenomegaly
Rectal: Deferred by Provider
Genito-urinary: Deferred by me
Musculoskeletal: No Clubbing, No Cyanosis and No Edema
Skin: Warm, Dry and Other (Port present right upper chest wall); No Rash or Jaundice
Neuro: Nonfocal/grossly intact, Cranial Nerves Intact, No Sensory Deficits and Other (Drowsy but oriented x 3 with overall generalized weakness); No Slurred Speech, Facial Droop or Tremors
Psych: Calm
Laboratory Results
-
11/28/23 11:08
11/28/23 11:08
Laboratory Results
PT 17.6 Sec (11.4-14.6) H 11/28/23 11:08
INR 1.47 11/28/23 11:08
APTT 38.1 Sec (23.4-35.0) H 11/28/23 11:08
Total Bilirubin 1.0 mg/dl (0.2-1.3) 11/28/23 11:08
AST 187 U/L (17-59) H 11/28/23 11:08
ALT 21 U/L (0-50) 11/28/23 11:08
Alkaline Phosphatase 148 U/L (38-126) H 11/28/23 11:08
Impression/Plan
-
Impression/plan:
Admit to IMU
#Intractable nausea vomiting decreased oral intake likely secondary to recent parietal hemorrhage with vasogenic edema/dehydration
-Patient has prolonged QTc 507 MS
-Will hold patient's ODT Zofran
-Tigan was given in ER
Will continue Tigan as needed
#Acute on chronic thrombocytopenia
Platelets 11(platelets have been around 20-37 from 01/19/2023 at home 09/24/2023)
Last platelet infusion was October with PLT at 20
monday given plt was 15 , plt 53 was on mon11/22/23 at [facility]
-Consult Oncology
-Type and screen
- give Platelet transfusion
- give 1 unit prbcs
# Left parietal hemorrhage with persistent vasogenic edema and partial resolution since 11/19/23
-Consult neurosurgery Dr. Mckeon aware
CT head: Partial but incomplete resolution of the left frontal hemorrhage since 11/19/2023. Persistent 4 cm surrounding area of vasogenic edema.
#Acute on chronic pancytopenia 2/2 chemo
WBC 2.6 absolute neuts 1.1, RBC 2.53, Hgb 7.5
-History of requiring blood and platelet transfusions
#Prolonged QTc
Hold patient's Zofran
EKG: NSR 94 bpm, prolonged QTc 507
#Metastatic prostate cancer(Dx 2016 ) retroperitoneal/pulmonary metastases undergoing treatment with Lupron, aberaterone, Keytruda, Xgeva
#Hx BRCA mutation
Colonic polyps on colonoscopy 2023 not removed due to thrombocytopenia
-Port right upper chest wall
-Follows with [facility]
-Consult Oncology
-Hold Zytiga due to prolonged qtc until oncology eval
- lupron 07/26
- cont Decadron 0.5 mg p.o. twice daily, Pepcid 20 mg daily
-Continue tramadol 50 mg every 6 hours as needed pain
-Continue supplemental vitamin C, calcium carbonate, vitamin D3/vitamin B12
-Hold Zofran due to prolonged QTc may give
#Acute hypotension likely secondary to volume depletion
Decreased oral intake past 1 to 2 weeks
-IV NSS 100 cc/h
#History of hydronephrosis that required right nephrostomy tube currently removed 2015
DVT prophylaxis
-Deferred due to severe thrombocytopenia
Full code
--- NOTE | 2023-11-28 16:46 | W.PN.UPDATE ---
Update Note
Progress Note Update
For billing purpose only
[2023-11-28] MEDS: NSS IV (17:44)
--- NOTE | 2023-11-28 18:31 | PTCARENOTE ---
Pt received from ED via stretcher. Unit of platelets infusing, completed shortly after pt's arrival to unit. Pt very flat and withdrawn. NSR/ST on tele monitor. VSS. Family at bedside, updated on plan of care.
[2023-11-28] MEDS: VITAMIN D3 (cholecalciferol) 25 MCG PO (18:36)
[2023-11-28] MEDS: VITAMIN C 500 MG PO (18:36)
[2023-11-28] MEDS: VITAMIN B-12 1000 MCG PO (18:36)
[2023-11-28] MEDS: OSCAL CAL 500 500 MG PO (18:36)
[2023-11-28] MEDS: TYLENOL 650 MG PO (19:45)
[2023-11-28] MEDS: DECADRON 0.5 MG PO (19:45)
[2023-11-28] MEDS: NSS 1000 IV (21:23)
[2023-11-29] VITALS (25 sets, daily range): BP systolic 94–118; BP diastolic 40–74
[2023-11-29 00:42] LABS: Mean Corp Hgb Conc. 35.5 g/dL (33.0-37.0); Mean Corpuscular Hgb 30.8 pg (27.0-31.0); Mean Corpuscular Volume 86.8 fL (80.0-94.0); Mean Platelet Volume 11.8 fL (7.4-10.4); Red Blood Cell Count 2.27 10^6/uL (4.70-6.10); Red Cell Dist. Width 16.5 % (11.5-14.5)
[2023-11-29 00:50] LABS: Hematocrit 19.7 % (39.0-52.0); Platelet Count 21 10^3/uL (130-400)
[2023-11-29 00:51] LABS: White Blood Cell Count 1.7 10^3/uL (4.8-10.8)
[2023-11-29 01:55] LABS: Absolute Neutrophils -Man Diff 0.8 10^3/uL (1.4-6.5); Atypical Lymphocytes 1 %; Band Neutrophils 7 % (0-3); Lymphocytes 48 % (20-51); Metamyelocytes 1 % (-); Monocytes 1 % (2-9); Segmented Neutrophils 42 % (42-75)
[2023-11-29 01:56] LABS: Platelets Checked Yes
[2023-11-29 01:57] LABS: Anisocytosis 1+; Normal RBC Morphology No; Nucleated Red Blood Cells 1 (-); Ovalocytes 1+; Rouleaux 1+; Total Cells Counted 100
[2023-11-29 02:53] LABS: Mean Corp Hgb Conc. 35.1 g/dL (33.0-37.0); Mean Corpuscular Hgb 30.1 pg (27.0-31.0); Mean Corpuscular Volume 85.8 fL (80.0-94.0); Mean Platelet Volume 11.4 fL (7.4-10.4); Red Blood Cell Count 2.26 10^6/uL (4.70-6.10); Red Cell Dist. Width 16.4 % (11.5-14.5)
[2023-11-29 02:56] LABS: White Blood Cell Count 1.6 10^3/uL (4.8-10.8)
[2023-11-29 02:57] LABS: Hematocrit 19.4 % (39.0-52.0); Hemoglobin 6.8 g/dL (13.0-18.0); Platelet Count 19 10^3/uL (130-400)
[2023-11-29] MEDS: ULTRAM 50 MG PO (06:08)
--- NOTE | 2023-11-29 06:22 | PTCARENOTE ---
Cared for pt overnight. aaox2-3, confused and forgetful at times. BA on all night. Pt received 2 units PRBC overnight d/t low hgb. No obvious signs of bleeding. VSS. IVF running. COntacted KEY RINGER about initial lab results lastnight, orders to redraw an
hour later. redraw was done & 1 unit of blood was ordered. order to hold off on plt's. Pt urinating a good amount but his urine is very dark brown/tea colored/cloudy, which per the is new. Urine color has not improved overnight from the fluids.
Will pass on.
Bed alarm on, call mcgraw in reach.
[2023-11-29] MEDS: NSS 1000 IV ×2 (07:04→18:43)
[2023-11-29] MEDS: TYLENOL 650 MG PO ×2 (08:10→19:52)
[2023-11-29] MEDS: DECADRON 0.5 MG PO (08:11)
[2023-11-29] MEDS: PEPCID 20 MG PO (08:11)
--- NOTE | 2023-11-29 08:25 | PTCARENOTE ---
Addendum entered by Jacinta Bland 11/29/23 09:40:
To and from CT via stretcher. Upon arrival back to room, pt reports improvement in headache- rating 4/10 pain. Labs drawn and sent 2 hours after end of blood transfusion.
Original Note:
Pt received from semiconductor wafers tester. C/o persistent 8/10 headache in the frontal area of the head despite Tramadol. Dr. Ybarra and Dr. Spain notified via TT. Pt now for CT scan.
[2023-11-29 09:41] LABS: % Basophils 0.5 % (0-2); % Eosinophils 0.5 % (0-6); % Immature Granulocytes 3.6 % (0-0.5); % Lymphocytes 42.3 % (20.5-51.1); % Monocytes 9.5 % (1.7-9.3); % Neutrophils 43.6 % (42.2-75.2); Absolute Immature Granulocytes 0.1 10^3/uL (0-0.05); Absolute Lymphocytes 0.9 10^3/uL (1.2-3.4); Absolute Monocytes 0.2 10^3/uL (0.1-0.6); Hematocrit 23.8 % (39.0-52.0); Mean Corp Hgb Conc. 34.9 g/dL (33.0-37.0); Mean Corpuscular Hgb 30.4 pg (27.0-31.0); Mean Corpuscular Volume 87.2 fL (80.0-94.0); Mean Platelet Volume 8.9 fL (7.4-10.4); Nucleated Red Blood Cells % 0.9 % (-); Red Blood Cell Count 2.73 10^6/uL (4.70-6.10); Red Cell Dist. Width 16.2 % (11.5-14.5)
[2023-11-29 09:46] LABS: White Blood Cell Count 2.2 10^3/uL (4.8-10.8)
[2023-11-29 09:47] LABS: Hemoglobin 8.3 g/dL (13.0-18.0)
[2023-11-29 09:48] LABS: Platelet Count 18 10^3/uL (130-400)
--- NOTE | 2023-11-29 09:55 | PTCARENOTE ---
Pt with critical labs, Dr. Ybarra notified via TT.
[2023-11-29 10:00] LABS: Blood Urea Nitrogen 14 mg/dl (9-20); Calcium 8.4 mg/dl (8.4-10.2); Carbon Dioxide 23 mmol/L (22-30); Chloride 109 mmol/L (98-107); Estimated Creatinine Clearance 79 ml/min; Glucose 100 mg/dl (70-99); Potassium 3.6 mmol/L (3.5-5.1); Sodium 140 mmol/L (135-145); eGFR > 60.00
--- NOTE | 2023-11-29 11:07 | CM ---
Addendum entered by Luisa Mckenzie RN 11/29/23 12:47:
Met with patient who was sleeping.
Met with Emily and discussed hospice; explained philosophy & benefits. seemed to be in shock about need for hospice. 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 unsure if she wants to take the patient home as she is concerned how it would affect the 13 yr old son. She is able to take time off work to be with her . She agrees to meet with Hospice nurse.
Spoke with Azalea, Hospice; she will meet with the patient/ now.
Plan follow up after seen by Hospice.
Original Note:
Patient with Hx metastatic prostate cancer on chemo, Left parietal hemorrhage 11/18 with Dx Intractable nausea vomiting, thrombocytopenia, vasogenic edema, pancytopenia, hypotension. CT Head today. Room air. Receiving IVF, Decadron. Per nurse
assessment; confused, forgetful. PT & OT Evals pending.
Spoke with patient's Emily, who is Harpsichord Maker/SW at [employer]patient [employer];
the patient resides with his , adult daughter and 13 yr old son in a 2 story house with 1 AFUA.
He was recently discharged from [facility]. He stayed in bed for a few days after d/c and then was able to get OOB, shower independently and ambulate on his own without using any assistive devices.
He has no DME, prior VN or SNF.
PCP - Ant Vargas
Pharmacy - [facility] Jagdeep Baker
would like an Advanced Directive and feels that her is A/O today and can help fill it out.
She is interested in VN and agree to discuss again after seen by PT/OT.
Plan provide Advanced Directive to patient/.
Plan follow up after PT/O Evals.
--- NOTE | 2023-11-29 11:25 | W.PN.HOSP.TC ---
Today's Communication/Plan
-
monitor vital signs
see plan
Hemoglobin now improved to 8.3
Monitor platelets, might need another transfusion. Awaiting hematology
Repeat head CT without any acute changes
PT/OT
Assessment / Plan
Assessment / Plan
General: No Apparent Distress
HEENT: NormoCephalic, Anicteric
Respiratory: Clear; No Wheezes, Rales or Rhonchi
Cardiac: S1/S2 and Regular Rhythm
GI: Soft, Non Tender, Non Distended, Normal Bowel Sounds
Musculoskeletal: No Edema
Skin: (Port present right upper chest wall)
Neuro: Nonfocal/grossly intact, Cranial Nerves Intact, No Sensory Deficits
Psych: Calm
Intractable nausea vomiting decreased oral intake likely secondary to recent parietal hemorrhage with vasogenic edema/dehydration
prolonged QTc
-Will hold patient's ODT Zofran
Will continue Tigan as needed
#Acute on chronic thrombocytopenia
Platelets 11(platelets have been around 20-37 from 01/19/2023 at home 09/24/2023)
last plt transfusion 11/27; plt now 18
monday given plt was 15 , plt 53 was on mon11/22/23 at [facility]
-Consulted Oncology
# Left parietal hemorrhage with persistent vasogenic edema and partial resolution since 11/19/23
-Consult neurosurgery Dr. Mckeon aware
CT head: Partial but incomplete resolution of the left frontal hemorrhage since 11/19/2023. Persistent 4 cm surrounding area of vasogenic edema
headache 11/28; repeat CT 11/28 without significant changes from prior CT
#Acute on chronic pancytopenia 2/ chemo
gave 1 unit prbc on admission for hemoglobin 7.5. Hemoglobin this morning 6.8, received another unit. Total 2 units so far. Hemoglobin now 8.3
-History of requiring blood and platelet transfusions
#Prolonged QTc
Hold patient's Zofran
#Metastatic prostate cancer(Dx 2016 ) retroperitoneal/pulmonary metastases undergoing treatment with Lupron, aberaterone, Keytruda, Xgeva
#Hx BRCA mutation
Colonic polyps on colonoscopy 2023 not removed due to thrombocytopenia
-Port right upper chest wall
-Follows with [facility]
-Consult Oncology
-Hold Zytiga due to prolonged qtc until oncology eval
- lupron 07/26
- cont Decadron 0.5 mg p.o. twice daily, Pepcid 20 mg daily
-Continue tramadol 50 mg every 6 hours as needed pain
-Continue supplemental vitamin C, calcium carbonate, vitamin D3/vitamin B12
-Hold Zofran due to prolonged QTc may give
#Acute hypotension likely secondary to volume depletion
Decreased oral intake past 1 to 2 weeks
cw IVF
#History of hydronephrosis that required right nephrostomy tube currently removed 2015
DVT prophylaxis
-Deferred due to severe thrombocytopenia
Full code
I spent a total of 52 minutes with the patient or on the floor. More than 50% of this time involved counseling and coordination of care.
Anticipated Discharge: > 48 hours
Subjective/Interval History
-
Date of Service: November 29, 2023
has intermittent headache
Objective Data
-
Labs:
Laboratory Results
11/29/23 11/29/23 11/29/23
00:22 02:06 09:27
WBC 1.7 L* 1.6 L* 2.2 L*
Hgb 7.0 L 6.8 L* 8.3 L D
Hct 19.7 L* 19.4 L* 23.8 L
Plt Count 21 L* D 19 L* 18 L*
Sodium 140
Potassium 3.6
Chloride 109 H
Carbon Dioxide 23
BUN 14
Creatinine 1.1
Glucose 100 H
Calcium 8.4
Vital Signs:
Vital Signs
Temp Pulse Resp BP Pulse Ox
98.5 F 94 17 108/69 97
11/29/23 07:50 11/29/23 10:15 11/29/23 10:15 11/29/23 10:15 11/29/23 10:00
I&O
11/28/23 11/29/23 11/30/23
06:59 06:59 06:59
Intake Total 826 / 826
Output Total 675 / 675
Balance 151 / 151
--- NOTE | 2023-11-29 13:14 | HOSPNOTE ---
Met with patient and spouse to discuss hospice and the philosophy. The spouse needs some time to accept this devastating news. The plan would be home with hospice, equipment is needed and the spouse will drive patient home when he is ready for
discharge. The plan is for me to meet with spouse in the am. Patient remains a full code.
--- NOTE | 2023-11-29 14:33 | PTCARENOTE ---
Pt's extremely upset and tearful after meeting with doctors and hospice. and friend assisted to respite room. Emotional support provided. Pastoral care notified of situation; [place] Meza to unit to speak with family. Pt sleeping
comfortably at this time.
--- NOTE | 2023-11-29 16:28 | CON.ONC ---
Impression
Impression
End-stage prostate cancer
Pancytopenia from marrow replacement by cancer
Performance status of 3-4
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
Plan
Plan
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
Had candid conversation with pt and :
- PS and cytopenias preclude further cancer treatment
- Symptoms are likely due to leptomeningeal disease
- Likely to soon, days to weeks.
Transfusions unlikely to improve life expectancy and in his current state, I do not think he would be able to come to [facility] for the transfusions.
Strongly encouraged hospice. Pt's indicated that she is amenable to a hospice consultation.
I did not discuss PS and he remains full code.
Will increase steroids to try to get symptoms under control.
Patient History
History of Present Illness
53 yo man, end-stage prostate cancer with extensive marrow involvement. Hospitalized earlier this month with acute intracranial hemorrhage, transported to [place] for neurosurgical evaluation. Determined it was determined that he did not need
neurosurgery and he was discharged home on 523. In the last 24 hours or so he developed increased headaches, nausea and vomiting, hardly eating or drinking. When seen yesterday in the office he was unable to sit upright during the visit. Hospice
had been previously discussed with patient wanted to continue transfusions. Patient has not seen Dr. Hanley personally since the intracranial hemorrhage, saw the nurse practitioner yesterday.
Past-Medical/Surgical History
Past Medical History
Left parietal hemorrhage 11/19/2023 due to severe thrombocytopenia
metastatic prostate cancer Dx 2016 undergoing treatment with Lupron, Zytiga, Keytruda, Xgeva
Chronic pancytopenia due to marrow replacement by cancer
History of hydro with right nephrostomy tube placement and removal.
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
Past Surgical History
Colonoscopy 2023 with polyps not removed due to thrombocytopenia
History of hydro with right nephrostomy tube placement and removal
Social History
Tobacco: Non-smoker
Alcohol: None
Drug: None
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
Living: With Family
Employment: Employed (Works from home for [employer])
Family History
Family History: Other (Mother HTN, father healthy)
Allergies / Home Medications
Patient Medication
�Medication �Instructions �Recorded �Confirmed �Last Taken �Type
cyanocobalamin (vitamin B-12) 1,000 mcg PO QPM Supplement 05/30/16 11/28/23 11/18/23 History
1,000 mcg tablet
abiraterone 250 mg tablet (Zytiga) 1,000 mg PO DAILY Prostate Cancer 01/17/23 11/28/23 11/28/23 History
ascorbic acid (vitamin C) 1,000 mg 500 mg PO QPM Supplement 01/17/23 11/28/23 11/27/23 History
tablet (Vitamin C)
denosumab 120 mg/1.7 mL (70 mg/mL) 120 mg SC Q4W Cancer 02/03/23 11/28/23 09/18/23 History
subcutaneous solution (Xgeva)
leuprolide acetate (6 month) 45 mg 45 mg IM [id number] Cancer 02/03/23 11/28/23 08/09/23 History
intramuscular syringe kit (Lupron
Depot)
dexamethasone 4 mg tablet 0.5 mg PO BID Cancer 06/07/23 11/28/23 11/16/23 History
tramadol 50 mg tablet 50 mg PO Q6HPRN PRN severe pain 07/21/23 11/28/23 10/26/23 History
calcium carbonate 500 mg PO QPM Supplement 11/19/23 11/28/23 11/27/23 History
cholecalciferol (vitamin D3) 25 25 mcg PO QPM Supplement 11/19/23 11/28/23 11/18/23 History
mcg (1,000 unit) tablet (Vitamin
D3)
famotidine 20 mg tablet (Pepcid) 20 mg PO DAILY Gastrointestinal 11/19/23 11/28/23 Unknown History
Issue
pembrolizumab 25 mg/mL intravenous 0 mg IV Q3W Cancer 11/19/23 11/28/23 Unknown History
solution (Keytruda)
ondansetron 8 mg disintegrating 8 mg PO DAILY nausea 11/28/23 11/28/23 11/28/23 History
tablet
Active Medications
Generic Name Dose Route Start Last Admin
Trade Name Freq PRN Reason Stop Dose Admin
Acetaminophen 650 mg 11/28/23 18:00 11/29/23 08:10
Acetaminophen 325 Mg Tablet PO 12/26/23 17:59 650 mg
Q4HPRN PRN Administration
mild pain/SEARS/temp> 100.4F
Ascorbic Acid 500 mg 11/28/23 18:00 11/28/23 18:36
Ascorbic Acid 500 Mg Tablet PO 12/26/23 17:59 500 mg
QPM YUNG Administration
Calcium Carbonate 500 mg 11/28/23 18:00 11/28/23 18:36
Calcium Carbonate 500 Mg Tablet PO 12/26/23 17:59 500 mg
QPM YUNG Administration
Cholecalciferol 25 mcg 11/28/23 18:00 11/28/23 18:36
Cholecalciferol (Vitamin D3) 25 Mcg Tablet (1,000 Units) PO 12/26/23 17:59 25 mcg
QPM YUNG Administration
Cyanocobalamin 1,000 mcg 11/28/23 18:00 11/28/23 18:36
Cyanocobalamin 1,000 Mcg Tablet PO 12/26/23 17:59 1,000 mcg
QPM YUNG Administration
Dexamethasone 0.5 mg 11/28/23 20:00 11/29/23 08:11
Dexamethasone 0.5 Mg Tablet PO 12/26/23 19:59 0.5 mg
BID YUNG Administration
Famotidine 20 mg 11/29/23 08:00 11/29/23 08:11
Famotidine 20 Mg Tablet PO 12/27/23 07:59 20 mg
DAILY YUNG Administration
Sodium Chloride 1,000 mls @ 100 mls/hr 11/28/23 16:30 11/29/23 07:04
Nss IV 1,000 mls
.Q10H YUNG Administration
Polyethylene Glycol 17 grams 11/28/23 18:00
Polyethylene Glycol Powder 17 Grams Packet PO 12/26/23 17:59
DAILYPRN PRN
constipation
Sodium Chloride 0 flush 11/28/23 19:00
Sodium Chloride 0.9% (Flush) Syringe IV 12/26/23 18:59
PER PROTOCOL YUNG
Tramadol HCl 50 mg 11/28/23 18:00 11/29/23 06:08
Tramadol Hcl 50 Mg Tablet PO 12/26/23 17:59 50 mg
Q6HPRN PRN Administration
severe pain
Trimethobenzamide HCl 200 mg 11/28/23 18:00
Trimethobenzamide 200 Mg/2 Ml Vial IM 12/26/23 17:59
Q6HPRN PRN
nausea vomiting
Review of Systems
-
History Source: Patient, Family and Records
All Other Systems: Not reviewed unless documented
Constitutional: Reports No Appetite, Fatigue and Weakness
EENT: Reports Blurry Vision and Other (SEARS)
Physical Exam
-
General: Well Developed, Well Nourished and Other (Awake, alert, flat affect)
HEENT: Negative Jaundice or Moist Mucous Membranes
Psych: Calm
Labs
Lab Results
WBC 2.2 10^3/uL (4.8-10.8) L* 11/29/23 09:27
RBC 2.73 10^6/uL (4.70-6.10) L 11/29/23 09:27
Hgb 8.3 g/dL (13.0-18.0) L D 11/29/23 09:27
Hct 23.8 % (39.0-52.0) L 11/29/23
MCV 87.2 fL (80.0-94.0) 11/29/23
MCH 30.4 pg (27.0-31.0) 11/29/23
MCHC 34.9 g/dL (33.0-37.0) 11/29/23
RDW 16.2 % (11.5-14.5) H 11/29/23
Plt Count 18 10^3/uL (130-400) L* 11/29/23
MPV 8.9 fL (7.4-10.4) 11/29/23
Abs Immat Gran (auto) 0.1 10^3/uL (0-0.05) H 11/29/23
Absolute Neuts (auto) 1.0 10^3/uL (1.4-6.5) L 11/29/23
Absolute Lymphs (auto) 0.9 10^3/uL (1.2-3.4) L 11/29/23
Absolute Monos (auto) 0.2 10^3/uL (0.1-0.6) 11/29/23
Absolute Eos (auto) 0.0 10^3/uL (0-0.7) 11/29/23
Absolute Basos (auto) 0.0 10^3/uL (0-0.2) 11/29/23
Immature Gran % 3.6 % (0-0.5) H 11/29/23
Neutrophils % 43.6 % (42.2-75.2) 11/29/23
Lymphocytes % 42.3 % (20.5-51.1) 11/29/23
Monocytes % 9.5 % (1.7-9.3) H 11/29/23
Eosinophils % 0.5 % (0-6) 11/29/23
Basophils % 0.5 % (0-2) 11/29/23 09:
Creatinine 1.1 mg/dL (0.7-1.3) 11/29/23 09:
Head CT = stable edema L parietal lobe
Vital Signs
Vital Signs
Temp Pulse Resp BP Pulse Ox
98.5 F 91 22 106/64 98
11/29/23 15:54 11/29/23 14:45 11/29/23 14:45 11/29/23 14:45 11/29/23 14:45
[2023-11-29] MEDS: TIGAN 200 MG IM (16:57)
--- NOTE | 2023-11-29 17:42 | PTCARENOTE ---
Entered pt's room to find him vomiting. IM Adonis administered, see MAR. Upon reassessment, pt reports feeling better. Continued support provided to pt and .
[2023-11-29] MEDS: VITAMIN C 500 MG PO (18:43)
[2023-11-29] MEDS: OSCAL CAL 500 500 MG PO (18:43)
[2023-11-29] MEDS: VITAMIN D3 (cholecalciferol) 25 MCG PO (18:43)
[2023-11-29] MEDS: VITAMIN B-12 1000 MCG PO (18:43)
[2023-11-29] MEDS: DECADRON 4 MG PO (19:52)
--- NOTE | 2023-11-29 21:54 | PTCARENOTE ---
assumed care of patient, at start of shift patient setting off bed alarm, pt assisted to BSCx1 to have BM. pt denies any SEARS or nausea at present. pt forgetful, able to make needs known. VSS, 97% RA. bed alarm on for safety. care ongoing.
--- NOTE | 2023-11-29 23:50 | PTCARENOTE ---
pt has had two BM's during this shift, all are formed and brown, but noticed when patient is wiping, blood is on the toilet paper. 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 pt did get a unit of blood during the day. care ongoing.
[2023-11-30] VITALS (13 sets, daily range): BP systolic 90–118; BP diastolic 46–80; PULSE 97; BMI 26.1
[2023-11-30] MEDS: NSS 1000 IV ×2 (04:04→14:32)
[2023-11-30 05:54] LABS: % Basophils 0.4 % (0-2); % Eosinophils 0.4 % (0-6); % Immature Granulocytes 4.9 % (0-0.5); % Lymphocytes 36.2 % (20.5-51.1); % Monocytes 8.5 % (1.7-9.3); % Neutrophils 49.6 % (42.2-75.2); Absolute Immature Granulocytes 0.1 10^3/uL (0-0.05); Absolute Lymphocytes 0.9 10^3/uL (1.2-3.4); Absolute Monocytes 0.2 10^3/uL (0.1-0.6); Absolute Neutrophils 1.2 10^3/uL (1.4-6.5); Hematocrit 22.6 % (39.0-52.0); Hemoglobin 7.8 g/dL (13.0-18.0); Mean Corp Hgb Conc. 34.5 g/dL (33.0-37.0); Mean Corpuscular Volume 86.9 fL (80.0-94.0); Mean Platelet Volume 10.7 fL (7.4-10.4); Nucleated Red Blood Cells % 0 % (-); Red Cell Dist. Width 16.5 % (11.5-14.5); White Blood Cell Count 2.5 10^3/uL (4.8-10.8)
[2023-11-30 06:00] LABS: Platelet Count 14 10^3/uL (130-400)
--- NOTE | 2023-11-30 06:09 | PTCARENOTE ---
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 awaiting orders.
[2023-11-30 06:12] LABS: Blood Urea Nitrogen 11 mg/dl (9-20); Carbon Dioxide 22 mmol/L (22-30); Chloride 113 mmol/L (98-107); Estimated Creatinine Clearance 97 ml/min; Glucose 107 mg/dl (70-99); Potassium 3.8 mmol/L (3.5-5.1); Sodium 142 mmol/L (135-145); eGFR > 60.00
--- NOTE | 2023-11-30 07:32 | W.PN.HOSP.TC ---
Today's Communication/Plan
-
Would not transfuse at this point with the platelet count of 14,000 no active bleeding
Patient remains full CODE STATUS/hospice care team to meet with patient's spouse this morning
Will continue IV fluids and increased dose steroids for now
Assessment / Plan
Assessment / Plan
General: No Apparent Distress
HEENT: NormoCephalic, Anicteric
Respiratory: Clear; No Wheezes, Rales or Rhonchi
Cardiac: S1/S2 and Regular Rhythm
GI: Soft, Non Tender, Non Distended, Normal Bowel Sounds
Musculoskeletal: No Edema
Skin: (Port present right upper chest wall)
Neuro: Nonfocal/grossly intact, Cranial Nerves Intact, No Sensory Deficits
Psych: Calm
Intractable nausea vomiting decreased oral intake likely secondary to recent parietal hemorrhage with vasogenic edema/dehydration
prolonged QTc
-Continue poor appetite and anorexia
-Will hold patient's ODT Zofran
Will continue Tigan as needed
#Acute on chronic thrombocytopenia
Platelets 11(platelets have been around 20-37 from 01/19/2023 at home 09/24/2023)
last plt transfusion 11/27; plt now 18
monday given plt was 15 , plt 53 was on wed 11/22/23 at [facility]
-Consulted Oncology/impression likely leptomeningeal involvement by his cancer had discussion with patient and spouse transfusion is unlikely to improve life expectancy in his current state(inform spouse days - weeks of life expectancy) and did not
think he would be able to come to [facility] for further transfusions strongly encouraged hospice/hospice care team to meet with patient and spouse today patient remains full CODE STATUS
# Left parietal hemorrhage with persistent vasogenic edema and partial resolution since 11/19/23/basically unchanged on CT scan of 28 November
-Consult neurosurgery Dr. Mckeon aware
CT head: Partial but incomplete resolution of the left frontal hemorrhage since 11/19/2023. Persistent 4 cm surrounding area of vasogenic edema
headache 11/28; repeat CT 11/28 without significant changes from prior CT
#Acute on chronic pancytopenia 2/2 chemo
gave 1 unit prbc on admission for hemoglobin 7.5. Hemoglobin this morning 6.8, received another unit. Total 2 units so far. Hemoglobin now 8.3
-History of requiring blood and platelet transfusions
#Prolonged QTc
Hold patient's Zofran
#Metastatic prostate cancer(Dx 2015 ) retroperitoneal/pulmonary metastases undergoing treatment with Lupron, aberaterone, Keytruda, Xgeva
#Hx BRCA mutation
Colonic polyps on colonoscopy 2023 not removed due to thrombocytopenia
-Port right upper chest wall
-Follows with [facility]
-Consult Oncology
-Hold Zytiga due to prolonged qtc until oncology eval/
-oncology increase patient's Decadron to 4 mg twice a day for apparent leptomeningeal involvement
- lupron 07/26
- , Pepcid 20 mg daily
-Continue tramadol 50 mg every 6 hours as needed pain
-Continue supplemental vitamin C, calcium carbonate, vitamin D3/vitamin B12
-Hold Zofran due to prolonged QTc may give
#Acute hypotension likely secondary to volume depletion
Decreased oral intake past 1 to 2 weeks
cw IVF
#History of hydronephrosis that required right nephrostomy tube currently removed 2015
DVT prophylaxis
-Deferred due to severe thrombocytopenia
Full code
I spent a total of 52 minutes with the patient or on the floor. More than 50% of this time involved counseling and coordination of care.
Anticipated Discharge: 24 - 48 hours
Subjective/Interval History
-
Date of Service: November 30, 2023
Poor historian no distress poor appetite patient's spouse to meet with the hospice care team this morning
Objective Data
-
Labs:
Laboratory Results
11/30/23
05:41
WBC 2.5 L
Hgb 7.8 L
Hct 22.6 L
Plt Count 14 L* D
Sodium 142
Potassium 3.8
Chloride 113 H
Carbon Dioxide 22
BUN 11
Creatinine 0.9
Glucose 107 H
Calcium 8.0 L
Vital Signs:
Vital Signs
Temp Pulse Resp BP Pulse Ox
97.9 F 93 17 105/57 97
11/30/23 03:31 11/30/23 06:00 11/30/23 06:00 11/30/23 06:00 11/29/23 20:00
I&O
11/29/23 11/30/23 12/01/23
06:59 06:59 06:59
Intake Total 826 / 826 360 / 360
Output Total 675 / 675 525 / 525
Balance 151 / 151 -165 / -165
Review of Systems
-
Unable to obtain full review of systems at this time due to: Dementia
History Source: Patient
Constitutional: Reports Weight Loss
Physical Exam
-
HEENT: Atraumatic
Respiratory: Decreased Breath Sounds
Cardiac: Regular Rhythm and Other (Med port in right upper chest)
Musculoskeletal: Edema, Right Lower Extrem and Edema, Left Lower Extrem
Neuro: Awake; Negative Oriented
Psych: Calm and Confused
Data Reviewed
-
Total Time Spent with Patient (in minutes): 56
Labs: Labs Reviewed by me (Platelet count down to 14,000/hemoglobin 7.8)
[2023-11-30] MEDS: PEPCID 20 MG PO (08:09)
[2023-11-30] MEDS: DECADRON 4 MG PO ×2 (08:09→19:55)
--- NOTE | 2023-11-30 11:26 | W.PN.ONC ---
Today's Communication / Plan
-
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
Reiterated a candid conversation with pt as he has been my patient for 9 years
PS and cytopenias preclude further cancer treatment
Prognosis poor
Transfusions unlikely to improve life expectancy and in his current state
Agree with hospice
Impression
Impression
End-stage prostate cancer
Pancytopenia from marrow replacement by cancer
Performance status of 3-4
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
Plan
Plan
Subjective/Objective
Subjective/Objective
Patient affect somewhat blunted. Awake and alert responds appropriately but limited verbally as usual. Reports less nausea and no headache.
Vital Signs:
Vital Signs
Temp Pulse Resp BP Pulse Ox
98.2 F 96 19 101/48 98
11/30/23 11:20 11/30/23 10:00 11/30/23 10:00 11/30/23 10:00 11/30/23 07:48
Physical Exam
-
HEENT: Atraumatic
Respiratory: Decreased Breath Sounds
Cardiac: Regular Rhythm and Other (Med port in right upper chest)
Musculoskeletal: Edema, Right Lower Extrem and Edema, Left Lower Extrem
Neuro: Awake and seemingly appropriate nonfocal
Lab Results:
Laboratory Data
WBC 2.5 10^3/uL (4.8-10.8) L 11/30/23 05:41
Hgb 7.8 g/dL (13.0-18.0) L 11/30/23 05:41
Plt Count 14 10^3/uL (130-400) L* D 11/30/23 05:41
PT 17.6 Sec (11.4-14.6) H 11/28/23 11:08
INR 1.47 11/28/23 11:08
APTT 38.1 Sec (23.4-35.0) H 11/28/23 11:08
eGFR > 60.00 11/30/23 05:41
--- NOTE | 2023-11-30 11:55 | HOSPNOTE ---
Spoke with spouse about hospice. Family is in agreement with hospice services. The plan is home tomorrow, equipment was ordered and will be delivered today, the spouse will cherry picker operator patient tomorrow so no transport is needed. Once patient is home we
will admit onto hospice services. Case management and attending aware of plan. Code status is now changed to a DNR, Attending notified.
--- NOTE | 2023-11-30 12:16 | CON.NS ---
Chief Complaint
-
ICH
History of Present Illness
This is a 53-year-old male known to our service. Most recently was at [place] for left parietal intracranial hemorrhage transferred to [place] for further evaluation. Ultimately he was transfused platelets for severe thrombocytopenia. He has
diffuse metastatic cancer. MRI which was completed [facility] did not show underlying mass however there was concern for leptomeningeal carcinomatosis. He presented to [facility] with lethargy. He has had repeat CAT scans which showed stability of
the extra-axial fluid collections as well has the left parietal hemorrhage which is showing resolution and expected edema. Post recent CAT scans have shown concern for underlying mass. Current conversations have been towards hospice for the
patient.
Review of Systems
-
10 point review of systems completed
Medication and Allergies
Home Medications
Home Medications
�Medication �Instructions �Recorded
cyanocobalamin (vitamin B-12) 1,000 mcg PO QPM Supplement 05/30/16
1,000 mcg tablet
abiraterone 250 mg tablet (Zytiga) 1,000 mg PO DAILY Prostate Cancer 01/17/23
ascorbic acid (vitamin C) 1,000 mg 500 mg PO QPM Supplement 01/17/23
tablet (Vitamin C)
denosumab 120 mg/1.7 mL (70 mg/mL) 120 mg SC Q4W Cancer 02/03/23
subcutaneous solution (Xgeva)
leuprolide acetate (6 month) 45 mg 45 mg IM [id number] Cancer 02/03/23
intramuscular syringe kit (Lupron
Depot)
dexamethasone 4 mg tablet 0.5 mg PO BID Cancer 06/07/23
tramadol 50 mg tablet 50 mg PO Q6HPRN PRN severe pain 07/21/23
calcium carbonate 500 mg PO QPM Supplement 11/19/23
cholecalciferol (vitamin D3) 25 25 mcg PO QPM Supplement 11/19/23
mcg (1,000 unit) tablet (Vitamin
D3)
famotidine 20 mg tablet (Pepcid) 20 mg PO DAILY Gastrointestinal 11/19/23
Issue
pembrolizumab 25 mg/mL intravenous 0 mg IV Q3W Cancer 11/19/23
solution (Keytruda)
ondansetron 8 mg disintegrating 8 mg PO DAILY nausea 11/28/23
tablet
Allergies
Allergies
Allergy/AdvReac Type Severity Reaction Status Date / Time
No Known Allergies Allergy Verified 11/28/23 10:52
Physical Exam
-
Exam:
Moving all extremities x 4
Problems
-
Problem Status Onset Code
Pancytopenia D61.818
Weakness R53.1
Assessment / Plan
-
ICH, leptomeningeal carcinomatosis, subdural fluid collection
1. No acute neurosurgical interventions
2. Platelet transfusions as indicated by oncology
3. Conversation with hospice care
4. Will sign off no need for outpatient follow-up
[2023-11-30] MEDS: OSCAL CAL 500 PO (16:42)
[2023-11-30] MEDS: VITAMIN D3 (cholecalciferol) PO (16:42)
[2023-11-30] MEDS: VITAMIN C PO (16:42)
[2023-11-30] MEDS: VITAMIN B-12 PO (16:42)
--- NOTE | 2023-11-30 17:11 | CM ---
Patient with Hx metastatic prostate cancer on chemo, Left parietal hemorrhage 11/18 with Dx Intractable nausea vomiting, thrombocytopenia, vasogenic edema, pancytopenia, hypotension. Seen by PT today.
Message from [facility]; plan home tomorrow on hospice. Everything will be delivered today. Family is asking 12 noon. They will be driving him home- no transport needed.
Plan home tomorrow with Hospice, by car.
[2023-12-01] VITALS: BP 97/57
[2023-12-01] MEDS: NSS 1000 IV (00:05)
[2023-12-01 03:23] VITALS: BP 95/52
[2023-12-01 04:00] VITALS: BP 102/68
[2023-12-01 05:50] LABS: % Immature Granulocytes 4.1 % (0-0.5); % Lymphocytes 37.8 % (20.5-51.1); % Monocytes 9.7 % (1.7-9.3); % Neutrophils 48.4 % (42.2-75.2); Absolute Immature Granulocytes 0.1 10^3/uL (0-0.05); Absolute Lymphocytes 0.8 10^3/uL (1.2-3.4); Absolute Monocytes 0.2 10^3/uL (0.1-0.6); Absolute Neutrophils 1.1 10^3/uL (1.4-6.5); Mean Corp Hgb Conc. 35.2 g/dL (33.0-37.0); Mean Corpuscular Hgb 30.6 pg (27.0-31.0); Mean Corpuscular Volume 86.9 fL (80.0-94.0); Mean Platelet Volume 10.5 fL (7.4-10.4); Nucleated Red Blood Cells % 0 % (-); Red Blood Cell Count 2.29 10^6/uL (4.70-6.10); Red Cell Dist. Width 16.8 % (11.5-14.5)
[2023-12-01 06:11] LABS: Hematocrit 19.9 % (39.0-52.0); Platelet Count 9 10^3/uL (130-400); White Blood Cell Count 2.2 10^3/uL (4.8-10.8)
[2023-12-01 06:14] LABS: Blood Urea Nitrogen 10 mg/dl (9-20); Carbon Dioxide 21 mmol/L (22-30); Chloride 114 mmol/L (98-107); Estimated Creatinine Clearance 97 ml/min; Glucose 123 mg/dl (70-99); Potassium 3.6 mmol/L (3.5-5.1); Sodium 139 mmol/L (135-145); eGFR > 60.00
--- NOTE | 2023-12-01 06:33 | PTCARENOTE ---
Cared for pt overnight. No issues. BA on. Pt aaox3 but forgetful and confused at times. NSR. VSS. Urine is still tea colored, urinating good amount. Labs abnormal this morning. 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
--- NOTE | 2023-12-01 07:01 | W.DS.TRANS ---
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
-
Discharge Instructions:
Discharge Diagnosis/Procedures Intracranial hemorrhage
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
-stage prostate cancer
Pancytopenia from marrow replacement by cancer
Performance status of only 3-4
Diet Regular
Activity With assistance
Driving Restrictions No driving
Instructions:
Stand-Alone Forms:
Changes to Home Medications: Yes
Discharge Medications:
DC Medications w/original date entered in [employer]
tramadol 50 mg tablet 50 mg PO Q6HPRN PRN severe pain 07/21/23
famotidine 20 mg tablet (Pepcid) 20 mg PO DAILY Gastrointestinal Issue 11/19/23
ondansetron 8 mg disintegrating tablet 8 mg PO DAILY nausea 11/28/23
dexamethasone 4 mg tablet 4 mg PO BID #20 tabs 12/01/23
Home Medication Changes
dexamethasone 4 mg tablet 4 mg PO BID #20 tabs 12/01/23
Pending Results: No
Total time spent discharging patient (in min): 45
[2023-12-01 07:16] VITALS: BP 94/58
[2023-12-01] MEDS: DECADRON 4 MG PO (08:27)
[2023-12-01] MEDS: PEPCID 20 MG PO (08:27)
--- NOTE | 2023-12-01 11:24 | W.DCSUMMARY ---
Discharge Summary
Discharge Data
Date of Admission: 11/28/23
Date of Discharge: 12/01/23
-
Pending Results: No
Hospital Course
53-year-old male with known history of advanced prostate cancer who recently underwent diagnosis of left parietal intracranial hemorrhage and transferred to [facility] complicated by severe thrombocytopenia he was recently discharged from
[facility] 1 week prior to presentation there was treated with fresh frozen plasma and platelet transfusion for thrombocytopenia. Presentation he has been having ongoing weakness and continued nausea although denying any headache or fever
or chills CT scan on presentation showed partial but incomplete resolution of the left parietal hemorrhage with persisting 4 cm area of vasogenic edema further evaluation and follow-up by neurosurgery deemed to have some improvement in from prior
scanning he presented again with significant thrombocytopenia
Consultations were placed with the oncology service and was seen by Dr. Jordan and Dr. Hanley who knows him and feel that his performance status is now down to 3-4 and opinion being now that he is intractable nausea vomiting are in relation to his
recent parietal hemorrhage and vasogenic edema he did have some response with IV hydration but continues to show a prolonged QTc and goals of care discussions were undertaken with the oncology service after meeting with Dr. Talon Jordan feel
that the patient's persisting need for multiple transfusions both for red blood cells and platelets are only temporizing in the setting of his metastatic breast prostate cancer retropectoral and pulmonary metastasis and now leptomeningeal
involvement his previous course of Zytiga was held due to his prolonged QTc oncology did increase his Decadron dosing from 0.5 mg twice a day to 4 mg twice daily given the above poor performance status and leptomeningeal involvement by cancer
suspected by radiologic imaging and also is protracted and continued pancytopenia in the setting of his end-stage prostate cancer discussions were had with patient and spouse in regards to goals of care and finally agreed to make the patient DO NOT
RESUSCITATE status given his poor prognosis and given that that further transfusions were unlikely to improve life expectancy in his current state and finally agreed to pursue hospice care at home and arrangements have been made for hospice care at
time of discharge and was seen by the hospice care team on 29 November and arrangements made for equipment and follow-up. Only medication profile at this point that was added was an increase in his Decadron from 0.5 mg to 4 mg twice a day he is
presently not complaining of any pain whatsoever pain management will be deferred to the hospice care team on further follow-up
Discharge Plan
-
Patient Disposition: Home with Hospice
Discharge Diagnosis/Procedures: Intracranial hemorrhage
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
Pancytopenia from marrow replacement by cancer
Performance status of only 3-4
Diet: Regular
Activity: With assistance
Driving Restrictions: No driving
Referrals:
Ant Vargas MD [Family Provider] -
Prescriptions:
New
dexamethasone 4 mg Tablet
4 mg PO BID Qty: 20 0RF
Continued
tramadol 50 mg Tablet
50 mg PO Q6HPRN PRN (Reason: severe pain)
famotidine [Pepcid] 20 mg Tablet
20 mg PO DAILY
ondansetron 8 mg Tablet,Disintegrating
8 mg PO DAILY
Discontinued
cyanocobalamin (vitamin B-12) 1,000 MCG tablet
1,000 mcg PO QPM
ascorbic acid (vitamin C) [Vitamin C] 1,000 mg Tablet
500 mg PO QPM
abiraterone [Zytiga] 250 mg Tablet
1,000 mg PO DAILY
Rx Instructions:
must be taken on empty stomach, at least 1 hr before or 2 hrs after a meal/food
Xgeva 120 mg/1.7 mL (70 mg/mL) Solution
120 mg SC Q4W
Lupron Depot (6 Month) 45 mg Syringe Kit
45 mg IM [id number]
dexamethasone [Decadron] 4 mg Tablet
0.5 mg PO BID
calcium carbonate [Calcium 500] 500 mg calcium (1,250 mg) Tablet
500 mg PO QPM
cholecalciferol (vitamin D3) [Vitamin D3] 25 mcg (1,000 unit) Tablet
25 mcg PO QPM
Keytruda 25 mg/mL Solution
0 mg IV Q3W
Discharge Orders:
Discharge Patient (As Directed); Ordered 12/01/23
Ordered By: Mejia Del Rio
Discharge Date and Time
Print Language: WOLOF
== END 2023-12-01 12:16 | disposition hospice, home (50) | DRG 808 ==
LOC: IMU 17:04
PROVIDERS: Clinical Nurse Specialist Family Health; Emergency Medicine; Nurse Practitioner Gerontology; ADMITTING PHYSICIAN Internal Medicine; ATTENDING PHYSICIAN Internal Medicine; EMERGENCY PHYSICIAN Emergency Medicine; FAMILY PHYSICIAN Family Medicine; OTHER PHYSICIAN Internal Medicine Cardiovascular Disease; OTHER PHYSICIAN Internal Medicine Hematology & Oncology
PROC: 30233N1 Transfusion of Nonautologous Red Blood Cells into Peripheral Vein, Percutaneous Approach (ICD-10-PCS; 2023-11-28)
PROC: 30233R1 Transfusion of Nonautologous Platelets into Peripheral Vein, Percutaneous Approach (ICD-10-PCS; 2023-11-28)
DX: D61.810 Antineoplastic chemotherapy induced pancytopenia (principal); G93.6 Cerebral edema; I61.1 Nontraumatic intracerebral hemorrhage in hemisphere, cortical; C78.00 Secondary malignant neoplasm of unspecified lung; C79.49 Secondary malignant neoplasm of other parts of nervous system; C61 Malignant neoplasm of prostate; Z51.5 Encounter for palliative care; Z66 Do not resuscitate; E86.0 Dehydration; R94.31 Abnormal electrocardiogram [ECG] [EKG]; E86.9 Volume depletion, unspecified; I95.9 Hypotension, unspecified; Z15.09 Genetic susceptibility to other malignant neoplasm; T45.1X5A Adverse effect of antineoplastic and immunosuppressive drugs, initial encounter; Z79.899 Other long term (current) drug therapy
CPT/HCPCS: 70450; 80048; 80053; 85025; 85027; 85610; 85730; 86850; 86900; 86901; 86920; 93005; 97163; 99285; P9016; P9073